=== PATIENT | female | born 1990 | race Caucasian/White ===

== ENCOUNTER 2017-03-09 15:03 | Emergency (ER) | payer MEDICAID ==
[2017-03-09] MEDS ORDERED: Sodium Chloride 0.9% 10 ML Syringe FLUSH PRN (15:25)
[2017-03-09] MEDS ORDERED: Sodium Chloride 0.9% 1,000 ML IV ONE (15:49)
[2017-03-09] MEDS ORDERED: diphenhydrAMINE 50 MG/ML SDV IVPUSH ONE (15:50)
[2017-03-09] MEDS ORDERED: methylPREDNISolone Sodium Succinate 125 MG/2 ML SDV IVPUSH ONE (15:51)
[2017-03-09] MEDS ORDERED: Ketorolac 30 MG/ML SDV IVPUSH ONE (15:52)
[2017-03-09] MEDS ORDERED: Diazepam 5 MG Tab PO ONE (15:52)
[2017-03-09 15:57] LABS: CHLORIDE,CL 105 mmol/L (98-107); SODIUM,NA 140 mmol/L (136-145)
--- NOTE | 2017-03-09 15:58 | EDM.PDOC ---
ED HPI GENERAL MEDICAL PROBLEM - General Chief Complaint: General Stated Complaint: Headache Time Seen by Provider: 03/09/17 15:20 Source of Information: Reports: Patient History Limitations: Reports: No Limitations - History of Present Illness INITIAL COMMENTS - FREE TEXT/NARRATIVE: Patient complaining of right sided migraine headache that started on Sunday, 2 days ago. Was seen in [place] ER. Received Toradol as well as medication for nausea. Headache went away but returned yesterday. Has nausea with the headache. No vision changes. Denies auras/prodromes. Long history of migraine headaches that have been extensively worked up. Improved when placed on medication for anxiety. Now rarely gets them. Does say that her father is currently in the hospital up in [place] and she has been stressed. No other recent health changes. ROS otherwise negative. Denies chance of . Says this feels like her usual migraine. No changes in presentation. BP elevated upon arrival. Patient said that her BP is normally elevated when she is having her migraines. - Related Data Allergies Allergy/AdvReac Type Severity Reaction Status Date / Time No Known Allergies Allergy Verified 08/28/15 09:09 Home Meds: Home Meds Acetaminophen [Tylenol] 650 mg PO Q4HR PRN 08/28/15 [History] FLUoxetine [PROzac] 20 mg PO QAM 08/28/15 [History] Past Medical History HEENT History: Reports: Impaired Vision Other HEENT History: Wears glasses or contacts Cardiovascular History: Reports: Arrhythmia, Hypertension Respiratory History: Reports: None Gastrointestinal History: Reports: None Genitourinary History: Reports: None [employer] History: Reports: Spontaneous Musculoskeletal History: Reports: None Neurological History: Reports: Headaches, Chronic, Migraines, Seizure, Vertigo Psychiatric History: Reports: Anxiety, Depression Endocrine/Metabolic History: Reports: None Hematologic History: Reports: None Immunologic History: Reports: None Oncologic (Cancer) History: Reports: None Dermatologic History: Reports: None - Infectious Disease History Infectious Disease History: Reports: Chicken Pox - Past Surgical History HEENT Surgical History: Reports: Laser Surgery - Past Imaging History Past Imaging History: Reports: CAT Scan, Ultrasound, Other (See Below) Social & Family History - Tobacco Use Smoking Status *Q: Current Every Day Smoker Years of Tobacco use: 8 Packs/Tins Daily: 0.5 Used Tobacco, but Quit: No Second Hand Smoke Exposure: No - Caffeine Use Caffeine Use: Reports: Coffee (1-2 times per month), Soda (One per day). Denies : Energy Drinks, Tea - Alcohol Use Days Per Week of Alcohol Use: 0 (No previous DWIs, problems with alcohol abuse, etc.) Number of Drinks Per Day: 2 (Usually wine coolers every 6 months) Total Drinks Per Week: 0 - Recreational Drug Use Recreational Drug Use: No Drug Use in Last 12 Months: No - Living Situation & Occupation Living situation: Reports: with Significant Other, with Family Occupation: Employed ED ROS GENERAL - Review of Systems Review Of Systems: See Below Constitutional: Reports: Decreased Appetite. Denies: Fever, Weakness, Diaphoresis HEENT: Reports: No Symptoms. Denies: Vision Change Respiratory: Reports: No Symptoms Cardiovascular: Reports: No Symptoms GI/Abdominal: Reports: Decreased Appetite, Nausea. Denies: Abdominal Pain, Constipation, Diarrhea, Melena, Vomiting : Reports: No Symptoms Musculoskeletal: Reports: No Symptoms Skin: Reports: No Symptoms Neurological: Reports: Headache. Denies: Confusion, Dizziness, Numbness, Paresthesia, Pre-Existing Deficit, Seizure, Syncope, Tingling, Tremors, Trouble Speaking, Difficulty Walking, Weakness, Change in Speech, Gait Disturbance Psychiatric: Reports: No Symptoms Hematologic/Lymphatic: Reports: No Symptoms ED EXAM, GENERAL - Physical Exam Exam: See Below Exam Limited By: No Limitations General Appearance: Alert, WD/WN, Mild Distress, Obese Eye Exam: Bilateral Eye: EOMI, PERRL Ears: Normal External Exam, Normal Canal, Hearing Grossly Normal, Normal TMs Nose: Normal Inspection Throat/Mouth: Normal Inspection, Normal Oropharynx, Normal Voice, No Airway Compromise Head: Atraumatic, Normocephalic Neck: Normal Inspection, Supple, Non-Tender, Full Range of Motion Respiratory/Chest: No Respiratory Distress, Lungs Clear, Normal Breath Sounds, No Accessory Muscle Use Cardiovascular: Normal Peripheral Pulses, Regular Rate, Rhythm, No Murmur Peripheral Pulses: 2+: Radial (L), Radial (R) GI/Abdominal: Normal Bowel Sounds, Soft, Non-Tender, No Distention (Female) Exam: Deferred Rectal (Female) Exam: Deferred Back Exam: Normal Inspection Extremities: Normal Inspection, Normal Range of Motion, Non-Tender, No Pedal Edema, Normal Capillary Refill Neurological: Alert, Oriented, CN II-XII Intact, Normal Cognition, Normal Gait, No Motor/Sensory Deficits Psychiatric: Other (fatigued appearance) Skin Exam: Warm, Dry, Intact, Normal Color Course - Vital Signs Last Recorded V/S: Last Vital Signs Temp 36.6 C 03/09/17 15:05 Pulse 68 03/09/17 15:25 Resp 16 03/09/17 15:05 BP 143/87 H 03/09/17 15:25 Pulse Ox 99 03/09/17 15:05 - Orders/Labs/Meds Orders: Active Orders 24 hr Category Date Time Status Saline Lock Insert [OM.PC] Routine Oth 03/09/17 15:24 Ordered Labs: Laboratory Tests 03/09/17 03/09/17 03/09/17 Range/Units 15:35 15:35 17:30 WBC 10.8 H (4.0-10.2) K/uL RBC 4.55 (3.77-5.09) M/uL Hgb 14.3 (11.7-15.5) g/dL Hct 42.7 (34.0-46.0) % MCV 93.8 (84.0-98.0) fL MCH 31.4 (28.2-33.3) pg MCHC 33.5 (31.7-36.0) g/dL RDW 13.7 (11.2-14.1) % Plt Count 200 (150-350) K/uL Neut % (Auto) 62.7 (45.0-80.0) % Lymph % (Auto) 26.9 (10.0-50.0) % Leake % (Auto) 5.7 (2.0-14.0) % Eos % (Auto) 4.4 (0.0-5.0) % Baso % (Auto) 0.3 (0.0-2.0) % Neut # (Auto) 6.79 (1.40-7.00) K/uL Lymph # (Auto) 2.91 (0.50-3.50) K/uL Leake # (Auto) 0.62 (0.00-1.00) K/uL Eos # (Auto) 0.48 (0.00-0.50) K/uL Baso # (Auto) 0.03 (0.00-0.20) K/uL Sodium 140 (136-145) mmol/L Potassium 4.0 (3.5-5.1) mmol/L Chloride 105 (98-107) mmol/L Carbon Dioxide 24.3 (21.0-32.0) mmol/L BUN 12 (7-18) mg/dL Creatinine 0.67 (0.51-1.17) mg/dL Est Cr Clr Drug Dosing 124.82 mL/min Estimated GFR (MDRD) > 60 mL/min Glucose 158 H (74-106) mg/dL Calcium 8.8 (8.5-10.1) mg/dL Magnesium 1.9 (1.8-2.4) mg/dL Total Bilirubin 0.2 (0.2-1.0) mg/dL AST 11 L (15-37) U/L ALT 21 (12-78) U/L Alkaline Phosphatase 87 (46-116) IU/L Total Protein 7.0 (6.4-8.2) g/dL Albumin 3.7 (3.4-5.0) g/dL Specimen Type Urine Color Urine Appearance Urine pH (5.0-9.0) Ur Specific [place] (1.005-1.030) Urine Protein (NEGATIVE) mg/dL Urine Glucose (UA) (NEGATIVE) mg/dL Urine Ketones (NEGATIVE) mg/dL Urine Occult Blood (NEGATIVE) Urine Nitrite (NEGATIVE) Urine Bilirubin (NEGATIVE) Urine Urobilinogen (0.2-1.0) E.U./dL Ur Leukocyte Esterase (NEGATIVE) Urine RBC /HPF Urine WBC /HPF Ur Epithelial Cells /LPF Urine Bacteria (NONE TO FEW) /HPF Urine Mucus (NEGATIVE) /LPF Urine HCG, Qual Negative 03/09/17 Range/Units 17:30 WBC (4.0-10.2) K/uL RBC (3.77-5.09) M/uL Hgb (11.7-15.5) g/dL Hct (34.0-46.0) % MCV (84.0-98.0) fL MCH (28.2-33.3) pg MCHC (31.7-36.0) g/dL RDW (11.2-14.1) % Plt Count (150-350) K/uL Neut % (Auto) (45.0-80.0) % Lymph % (Auto) (10.0-50.0) % Leake % (Auto) (2.0-14.0) % Eos % (Auto) (0.0-5.0) % Baso % (Auto) (0.0-2.0) % Neut # (Auto) (1.40-7.00) K/uL Lymph # (Auto) (0.50-3.50) K/uL Leake # (Auto) (0.00-1.00) K/uL Eos # (Auto) (0.00-0.50) K/uL Baso # (Auto) (0.00-0.20) K/uL Sodium (136-145) mmol/L Potassium (3.5-5.1) mmol/L Chloride (98-107) mmol/L Carbon Dioxide (21.0-32.0) mmol/L BUN (7-18) mg/dL Creatinine (0.51-1.17) mg/dL Est Cr Clr Drug Dosing mL/min Estimated GFR (MDRD) mL/min Glucose (74-106) mg/dL Calcium (8.5-10.1) mg/dL Magnesium (1.8-2.4) mg/dL Total Bilirubin (0.2-1.0) mg/dL AST (15-37) U/L ALT (12-78) U/L Alkaline Phosphatase (46-116) IU/L Total Protein (6.4-8.2) g/dL Albumin (3.4-5.0) g/dL Specimen Type [place] Urine Color Yellow Urine Appearance Clear Urine pH 6.5 (5.0-9.0) Ur Specific [place] 1.015 (1.005-1.030) Urine Protein Negative (NEGATIVE) mg/dL Urine Glucose (UA) Negative (NEGATIVE) mg/dL Urine Ketones Negative (NEGATIVE) mg/dL Urine Occult Blood Negative (NEGATIVE) Urine Nitrite Negative (NEGATIVE) Urine Bilirubin Negative (NEGATIVE) Urine Urobilinogen 0.2 (0.2-1.0) E.U./dL Ur Leukocyte Esterase Negative (NEGATIVE) Urine RBC 0-5 /HPF Urine WBC 0-5 /HPF Ur Epithelial Cells Few /LPF Urine Bacteria Few (NONE TO FEW) /HPF Urine Mucus Few H (NEGATIVE) /LPF Urine HCG, Qual Meds: Medications Discontinued Medications Generic Name Dose Route Start Last Admin Trade Name Daneq PRN Reason Stop Dose Admin Diazepam 5 mg 03/09/17 15:52 03/09/17 16:09 Valium. PO 03/09/17 15:53 5 mg ONETIME ONE Administration Diphenhydramine HCl 50 mg 03/09/17 15:50 03/09/17 16:05 Benadryl IVPUSH 03/09/17 15:51 50 mg ONETIME ONE Administration Sodium Chloride 1,000 mls @ 999 mls/hr 03/09/17 15:49 03/09/17 15:56 Normal Saline IV 03/09/17 16:49 999 mls/hr .BOLUS ONE Administration Ketorolac Tromethamine 30 mg 03/09/17 15:52 03/09/17 16:01 Toradol IVPUSH 03/09/17 15:53 30 mg ONETIME ONE Administration Methylprednisolone Sodium Succinate 125 mg 03/09/17 15:51 03/09/17 16:07 Solu-Medrol IVPUSH 03/09/17 15:52 125 mg ONETIME ONE Administration Metoprolol Tartrate 25 mg 03/09/17 16:03 Lopressor PO 03/09/17 16:04 ONETIME ONE Sodium Chloride 10 ml 03/09/17 15:25 03/09/17 16:04 Saline Flush FLUSH 10 ml ASDIRECTED PRN Administration Keep Vein Open Sumatriptan Succinate 6 mg 03/09/17 16:56 03/09/17 17:06 Imitrex SUBCUT 03/09/17 16:57 6 mg ONETIME ONE Administration - Re-Assessments/Exams Free Text/Narrative Re-Assessment/Exam: 03/09/17 15:58 Baseline labs requested. IV fluids ordered. Toradol/Benadryl/Zofran ordered IV. PO Valium given. Solumedrol given. Free Text/Narrative Re-Assessment/Exam: 03/09/17 17:34 Significant improvement of headache. Patient would like to go home. Precautions reviewed. Suggested considering elimination diet to see if it helps headaches. Departure - Departure Time of Disposition: 17:33 Disposition: Home, Self-Care 01 Condition: Good Clinical Impression: Migraine headache Qualifiers: Migraine type: unspecified Status migrainosus presence: without status migrainosus Intractability: not intractable Qualified Code(s): G43.909 - Migraine, unspecified, not intractable, without status migrainosus - Discharge Information Instructions: Sumatriptan injection, Diphenhydramine injection, Ketorolac injection, Methylprednisolone Solution for Injection, Diazepam tablets, Migraine Headache Referrals: Cat Valdivia PA-C [Primary Care Provider] - Forms: ED Department Discharge Additional Instructions: Home, rest, keep hydrated. Follow up as needed. Highly recommend elimination diet as discussed to see if it helps your headaches. - My Orders Last 24 Hours: My Active Orders 03/09/17 15:24 Saline Lock Insert [OM.PC] Routine - Assessment/Plan Last 24 Hours: My Active Orders 03/09/17 15:24 Saline Lock Insert [OM.PC] Routine
[2017-03-09] MEDS ORDERED: Metoprolol Tartrate 25 MG Tab PO ONE (16:03)
[2017-03-09 16:49] VITALS: BP 143/87
[2017-03-09] MEDS ORDERED: SUMAtriptan 6 MG/0.5 ML SDV SUBCUT ONE (16:56)
== END 2017-03-09 17:45 | disposition home or self-care (01) ==
LOC: LL.ED 15:03
DX: G43.009 Migraine without aura, not intractable, without status migrainosus (principal); I10 Essential (primary) hypertension; F17.210 Nicotine dependence, cigarettes, uncomplicated
CPT/HCPCS: 36415; 80053; 81001; 81025; 83735; 85025; 96361; 96372; 96374; 96375; 99283; A9270-GY; J1200; J1885; J2930; J3030; J7030; J7050

== ENCOUNTER 2018-04-08 08:47 | Emergency (ER) | payer MEDICAID ==
[2018-04-08 09:26] VITALS: BP 143/93
--- NOTE | 2018-04-08 09:33 | EDM.PDOC ---
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 Denies injury but is 18 weeks and has noted intermittent right sided abdominal cramping since the fall. 8 Para 3. No spotting/bleeding. No other complaints. Came in to get the checked. Right Lower Abdomen Pain Score (Numeric/FACES): 4 - Related Data Allergies Allergy/AdvReac Type Severity Reaction Status Date / Time venlafaxine [From Effexor] Allergy Itching Verified 04/08/18 08:49 Home Meds: Home Meds Acetaminophen [Tylenol] 650 mg PO Q4HR PRN 08/28/15 [History] FLUoxetine [PROzac] 40 mg PO QAM 08/28/15 [History] Vit No.129/Iron/FA [ One Daily Tablet] 1 tab PO DAILY 04/08/18 [History] Past Medical History HEENT History: Reports: Impaired Vision Other HEENT History: Wears glasses or soft contacts Cardiovascular History: Reports: Arrhythmia, High Cholesterol, Hypertension, Other (See Below) Other Cardiovascular History: History of sinus arrhythmia, borderline tachycardia with questionable atrial tachycardia versus sinus tachycardia on based on review of emergency room records. Intermittent hypertension not currently being treated. Dyslipidemia Respiratory History: Reports: None Gastrointestinal History: Reports: None Genitourinary History: Reports: None TELEPHONE ADVICE NURSE History: Reports: , Spontaneous Other TELEPHONE ADVICE NURSE History: Note history of first trimester SABs 4 with last SAB requiring D&C in May 2016. Otherwise full term normal spontaneous vaginal deliveries without complications. Patient currently on progesterone secondary to her recurrent SABs. Musculoskeletal History: Reports: None Neurological History: Reports: Headaches, Chronic, Migraines, Seizure, Vertigo, Other (See Below) Other Neuro History: History of mixed Migraine-tension headaches since 2012 with previous negative workup as below. 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 Chronic intermittent vertigo since October 2014. Psychiatric History: Reports: Aggressive/Hostile Behaviors, Anxiety, Depression Endocrine/Metabolic History: Reports: Obesity/BMI 30+ Hematologic History: Reports: None Immunologic History: Reports: None Oncologic (Cancer) History: Reports: None Dermatologic History: Reports: None - Infectious Disease History Infectious Disease History: Reports: Chicken Pox - Past Surgical History Head Surgeries/Procedures: Reports: None HEENT Surgical History: Reports: None Cardiovascular Surgical History: Reports: None Respiratory Surgical History: Reports: None GI Surgical History: Reports: Appendectomy, Other (See Below) Other GI Surgeries/Procedures: Open appendectomy at age 8 Female Surgical History: Reports: D&C, Other (See Below) Other Female Surgeries/Procedures: D&C in May 2016 secondary to SAB as above. Endocrine Surgical History: Reports: None Neurological Surgical History: Reports: None Musculoskeletal Surgical History: Reports: None Oncologic Surgical History: Reports: None Dermatological Surgical History: Reports: None - Past Imaging History Past Imaging History: Reports: CAT Scan (CT scan of the head in about 2012.), EEG (Sleep deprived EEG in about 2012.), MRI (MRI of the brain on 10/08/17.), Ultrasound (Right breast ultrasound on 01/04/17.), Venous Doppler (Venous Doppler study of the right leg on 10/01/17.), Other (See Below) Social & Family History - Family History HEENT: Reports: None Cardiac: Reports: Aneurysm, CAD, High Cholesterol, Hypertension, CO, Stent, Other (See Below) Other Cardiac Family History: Father with history of CO in his early 20s with no procedures required. Maternal grandmother with CO in her late her 30s with PTCA/stents required. Father with cerebral aneurysms as below. Parents with hypertension and hyperlipidemia. Respiratory: Reports: None GI: Reports: Hepatitis, Other (See Below) Other GI Family History: Father with unknown type of hepatitis. : Reports: None OBGYN: Reports: None Musculoskeletal: Reports: Arthritis, Osteoarthritis, Other (See Below) Other Musculoskeletal Family History: Father and brother with Raynaurd's syndrome. Neurological: Reports: Alzheimers Disease, Cerebral Aneurysms, CVA, Dementia, Other (See Below) Other Neurological Family History: Maternal grandmother with dementia. Paternal grandfather with hemorrhagic CVA in his 40s secondary to cerebral aneurysm. Psychiatric: Reports: Anxiety, Depression, Other (See Below) Other Psychiatric Family History: Anxiety depression disorder in parents, sister , and brother. Endocrine/Metabolic: Reports: Diabetes, type II, IDDM, Other (See Below) Other Endocrine/Metabolic Family History: Paternal grandfather and father with IDDM. Hematologic: Reports: None Immunologic: Reports: None Dermatologic: Reports: None Oncologic: Reports: Prostate, Uterine, Other (See Below) - Tobacco Use Smoking Status *Q: Current Some Day Smoker Years of Tobacco use: 8 Packs/Tins Daily: 0.2 Tobacco Use Comment: Down to 4 cigarettes a day currently Mar 2018 Smoking Cessation Information Provided To Patient: Patient Refused - Caffeine Use Caffeine Use: Reports: None. 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 ED EXAM, GI/ABD - Physical Exam Exam: See Below Exam Limited By: No Limitations General Appearance: Alert, WD/WN, No Apparent Distress, Obese Eyes: Bilateral: Normal Appearance, EOMI Nose: No: Nasal Deformity, Nasal Swelling Throat/Mouth: Normal Lips, Normal Voice, No Airway Compromise Head: Atraumatic, Normocephalic Neck: Supple, Non-Tender, Full Range of Motion Respiratory/Chest: No Respiratory Distress, Lungs Clear, Normal Breath Sounds, No Accessory Muscle Use, Chest Non-Tender Cardiovascular: Regular Rate, Rhythm, No Murmur GI/Abdominal Exam: Normal Bowel Sounds, Soft, Non-Tender, Other (gravid/18 weeks ). No: Distended, Guarding, Rigid, Rebound, Tender (Female) Exam: Deferred Rectal (Female) Exam: Deferred Back Exam: No: Muscle Spasm Extremities: Normal Range of Motion, Non-Tender, Normal Capillary Refill Neurological: Alert, Oriented, Normal Cognition, Normal Gait, No Motor/Sensory Deficits Psychiatric: Normal Affect, Normal Mood Skin Exam: Warm, Dry, Intact, Normal Color Course - Vital Signs Last Recorded V/S: Last Vital Signs Temp 36.3 C 04/08/18 09:24 Pulse 93 04/08/18 09:24 Resp 15 04/08/18 09:24 BP 143/93 H 04/08/18 09:24 Pulse Ox 100 04/08/18 09:24 - Orders/Labs/Meds Orders: Active Orders 24 hr Category Date Time Status OB 2 Or 3 Tri Sgl 1st Gest [US] Stat Exams 04/08/18 08:59 Taken - Re-Assessments/Exams Free Text/Narrative Re-Assessment/Exam: 04/08/18 09:29 Unremarkable exam. No focal findings/tenderness. BP mildly elevated. Patient has history of borderline HTN and has chosen not to treat it up until this point. Doppar noted normal heart tones. US of abdomen requested to look for any abnormality, such as sign of abruption. If negative, patient will be discharged home. Precautions already have been reviewed with patient. She is to observe for any new symptoms, worsening cramps, vaginal bleeding, and is to follow up for re- evaluation as needed if changes are noted. 04/08/18 13:27 Unremarkable abdominal US exam per tech. Patient discharged home with the above instructions. Work excuse provided for today. Departure - Departure Time of Disposition: 10:20 Disposition: Home, Self-Care 01 Condition: Good Clinical Impression: Fall Qualifiers: Encounter type: initial encounter Qualified Code(s): W19.XXXA - Unspecified fall, initial encounter Qualifiers: Weeks of gestation: 18 weeks Qualified Code(s): Z3A.18 - 18 weeks gestation of - Discharge Information *PRESCRIPTION DRUG MONITORING PROGRAM REVIEWED*: Not Applicable *COPY OF PRESCRIPTION DRUG MONITORING REPORT IN PATIENT ERIBERTO: Not Applicable Referrals: Cat Valdivia PA-C [Primary Care Provider] - Forms: ED Department Discharge, ED Return to Work/School Form Additional Instructions: Home, rest today. Watch for changes. Followup as needed if any new concerns develop, such as vaginal bleeding/increased cramping. - My Orders Last 24 Hours: My Active Orders 04/08/18 08:59 OB 2 Or 3 Tri Sgl 1st Gest [US] Stat - Assessment/Plan Last 24 Hours: My Active Orders 04/08/18 08:59 OB 2 Or 3 Tri Sgl 1st Gest [US] Stat
== END 2018-04-08 10:05 | disposition home or self-care (01) ==
LOC: LL.ED 08:47
DX: Z04.3 Encounter for examination and observation following other accident (principal); O99.282 Endocrine, nutritional and metabolic diseases complicating pregnancy, second trimester; E78.00 Pure hypercholesterolemia, unspecified; O99.332 Smoking (tobacco) complicating pregnancy, second trimester; F17.210 Nicotine dependence, cigarettes, uncomplicated; Z3A.18 18 weeks gestation of pregnancy
CPT/HCPCS: 76805; 99284

== ENCOUNTER 2018-10-31 13:20 | Emergency (ER) | payer MEDICAID ==
[2018-10-31] MEDS ORDERED: Sodium Chloride 0.9% 10 ML Syringe FLUSH PRN (13:28)
[2018-10-31] MEDS ORDERED: Ticagrelor 90 MG Tab PO ONE (13:28)
[2018-10-31] MEDS ORDERED: Famotidine 20 MG/2 ML SDV IVPUSH ONE (13:28)
[2018-10-31] MEDS ORDERED: Aspirin 81 MG Tab.Chew CHEW ONE (13:28)
--- NOTE | 2018-10-31 13:28 | EDM.PDOC ---
ED HPI GENERAL MEDICAL PROBLEM - General Chief Complaint: Chest Pain Stated Complaint: chest pain Time Seen by Provider: 10/31/18 13:20 Source of Information: Reports: Patient, Old Records ([facility] chart/EMR), Other ([facility] EMR) History Limitations: Reports: No Limitations - History of Present Illness INITIAL COMMENTS - FREE TEXT/NARRATIVE: The patient drove herself to the emergency room via private automobile for evaluation of 5/10 left-sided chest pressure with symptoms starting at work while she was simply standing with no medications taken for her symptoms to this point. Note that she had just eaten some chicken nuggets at noon, however no known previous history of food intolerance, including fatty foods, etc. The patient has had a recent extensive negative cardiac workup in December 2017 as below. The patient denies any heart flutter, dizziness, orthostasis, orthopnea, diaphoresis, paresthesias, recent decreased exercise tolerance, or any other anginal-type symptoms. No recent history of abdominal pain, heartburn, nausea, diarrhea, melena, gross hematochezia, etc.. She denies gross hematuria, colic, or other UTI symptoms. The patient also denies any recent fever, cough, wheezing , dyspnea, etc.. Onset: Today, Sudden Onset Date: 10/31/18 Onset Time: 12:30 Duration: Constant Location: Reports: Chest. Denies: Head, Face, Neck, Abdomen, Back, Upper Extremity, Left, Upper Extremity, Right, Radiates to Quality: Reports: Pressure, Same as Previous Episode Severity: Moderate Improves with: Reports: None Worsens with: Reports: None Context: Reports: Other (As above). Denies: Sick Contact, Trauma Associated Symptoms: Reports: Chest Pain. 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 10/31/18 [Rx] Past Medical History HEENT History: Reports: Impaired Vision. Denies: Allergic Rhinitis, Cataract, Glaucoma, Hard of Hearing, Macular Degeneration, Otitis Media, Retinal Detachment Other HEENT History: Wears glasses or soft contacts Cardiovascular History: Reports: Arrhythmia, High Cholesterol, Hypertension, Other (See Below). Denies: Afib, Aneurysm, Blood Clots/VTE/DVT, CAD, Cardiomyopathy, Heart Failure, Heart Murmur, MA, PVD, Syncope Other Cardiovascular History: PVCs by Holter monitor. History of sinus arrhythmia, borderline tachycardia with questionable atrial tachycardia versus sinus tachycardia on 02/03/15 based on review of emergency room records. Intermittent hypertension not currently being treated. Dyslipidemia. Respiratory History: Reports: None. Denies: Asthma, Bronchitis, Recurrent, COPD , Intubation, Previous, PE, Pneumothorax, Sleep Apnea, TB Gastrointestinal History: Reports: None. Denies: Bowel Obstruction, Celiac Disease, Cholelithiasis, Chronic Constipation, Chronic Diarrhea, Colon Polyp, Fecal Incontinence, Gastritis, GERD, GI Bleed, Hepatitis, Inflammatory Bowel Disease, Irritable Bowel Syndrome, Jaundice, Pancreatitis Genitourinary History: Reports: None. 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 Last delivery on 08/27/18 at about 37 weeks gestation by induction secondary to preeclampsia. hemorrhage in 2013 as below. 2000 Note history of first trimester SABs 4 with last SAB requiring D&C in May 2016. Otherwise full term normal spontaneous vaginal deliveries without complications. Musculoskeletal History: Reports: None. Denies: Amputation, Arthritis, Back Pain, Chronic, Fracture, Gout, Neck Pain, Chronic, Osteoarthritis, RA, SLE Neurological History: Reports: Headaches, Chronic, Migraines, Seizure, Vertigo, Other (See Below). Denies: CVA, Head Trauma, Neuropathy, Peripheral, Parkinson' s, TIA Other Neuro History: History of mixed Migraine-tension headaches since 2012 with previous negative workup as below. 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 Chronic intermittent vertigo since October 2014. Psychiatric History: Reports: Aggressive/Hostile Behaviors, Anxiety, Depression. Denies: Abuse, Victim of, ADD, ADHD, Addiction, Psych Hospitalization(s), PTSD, Suicide Attempt, Suicidal Ideation Endocrine/Metabolic History: Reports: Obesity/BMI 30+. Denies: Diabetes, Gestational, Diabetes, Type I, Diabetes, Type II, Diabetes Mellitus, Type 3c, Hypothyroidism, IDDM Hematologic History: Reports: Anemia, Other (See Below). Denies: Blood Transfusion(s), Iron Deficiency Other Hematologic History: Post hemorrhage with secondary anemia without transfusion on 02/07/2014. Immunologic History: Reports: None. Denies: AIDS, HIV, SLE Oncologic (Cancer) History: Reports: None. Denies: Breast, Cervix, Hodgkin's Lymphoma, Lymphoma, Malignant Melanoma, Non-Hodgkin's Lymphoma, Ovarian, Squamous Cell Carcinoma, Uterine Dermatologic History: Reports: None. Denies: Eczema, Psoriasis - Infectious Disease History Infectious Disease History: Reports: Chicken Pox. Denies: C-Difficile, Measles , Meningitis, Mononucleosis, MRSA, Mumps, Pertussis (Whooping Cough), Rubella, Scarlet Fever, Shingles, TB, VRE - Past Surgical History Head Surgeries/Procedures: Reports: None HEENT Surgical History: Reports: None. Denies: Adenoidectomy, Eye Surgery, Laser Surgery, LASIK, Myringotomy w Tube(s), Naso-Sinus Surgery, Oral Surgery, Tonsillectomy Cardiovascular Surgical History: Reports: None. Denies: Varicose Respiratory Surgical History: Reports: None. Denies: Thoracentesis GI Surgical History: Reports: Appendectomy, Other (See Below). Denies: Cholecystectomy, Colonoscopy, EGD, Hernia, Abdominal, Hernia, Inguinal, Hernia Repair/Other Other GI Surgeries/Procedures: Open appendectomy at age 8 Female Surgical History: Reports: D&C, Dilitation & Evacuation, Other (See Below). Denies: Breast Biopsy, Section, Hysterectomy, Salpingo- Oophorectomy, Tubal Ligation Other Female Surgeries/Procedures: Laparoscopic Bilateral salpingoectomy on . D&C on 06/09/16 secondary to SAB as above. Endocrine Surgical History: Reports: None. Denies: Thyroid Biopsy Neurological Surgical History: Reports: None. Denies: C-Spine, Discectomy, Laminectomy, Lumbar Spine, Sacral Spine, Spinal Fusion, Thoracic Spine, Vertebroplasty Musculoskeletal Surgical History: Reports: None. Denies: Arthroscopic Procedure , Carpal Tunnel, Ganglion Cyst, Joint Replacement, ORIF, Shoulder Surgery Oncologic Surgical History: Reports: None Dermatological Surgical History: Reports: None - Past Imaging History Past Imaging History: Reports: Angiography (Negative heart catheterization on .), Cardiac Echo (Normal echocardiogram on 01/06/18 with ejection fraction of 65%.), CAT Scan (CT scan of the head in about 2012.), EEG (Sleep deprived EEG in about 2012.), Holter Monitor (02/16/15), MRI (MRI of the brain on 10/08/17 and 01/20/15.), Ultrasound (Multiple OB ultrasounds, including last OB ultrasound with concomitant umbilical artery Doppler evaluation on 04/25/18. Right breast ultrasound on 01/04/17.), Venous Doppler (Venous Doppler study of the right leg on 10/01/17.), Other (See Below) Social & Family History - Family History HEENT: Reports: None. Denies: Glaucoma, Macular Degeneration, Retinal Detachment Cardiac: Reports: Aneurysm, CAD, High Cholesterol, Hypertension, MA, Stent, Other (See Below). Denies: Afib, Arrhythmia, Blood Clots/VTE/DVT, PVD/COD, Syncope Other Cardiac Family History: Father with history of MA in his early 20s with no procedures required. Maternal grandmother with MA in her late her 30s with PTCA/stents required. Father with cerebral aneurysms as below. Parents with hypertension and hyperlipidemia. Respiratory: Reports: None. Denies: Asthma, COPD, PE, Pneumothorax, Sleep Apnea GI: Reports: Hepatitis, Other (See Below). Denies: Celiac Disease, Cholelithiasis, Colon Polyps, Inflammatory Bowel Disease, Irritable Bowel Syndrome Other GI Family History: Father with unknown type of hepatitis. : Reports: None. Denies: Renal Calculus, Renal Disease/Insufficiency OBGYN: Reports: None. Denies: Endometriosis, Recurrent Spontaneous Musculoskeletal: Reports: Arthritis, Osteoarthritis, Other (See Below). Denies : Gout, RA, SLE Other Musculoskeletal Family History: Father and brother with Raynaurd's syndrome. Neurological: Reports: Alzheimers Disease, Cerebral Aneurysms, CVA, Dementia, Other (See Below). Denies: Migraines, MS, Parkinson's, Seizure, TIA, Vertigo Other Neurological Family History: Maternal grandmother with dementia. Paternal grandfather with hemorrhagic CVA in his 40s secondary to cerebral aneurysm. Psychiatric: Reports: Anxiety, Depression, Other (See Below). Denies: Abuse, Victim of, ADD, ADHD, Psych Hospitalization(s), PTSD, Suicide Attempt Other Psychiatric Family History: Anxiety depression disorder in parents, sister , and brother. Endocrine/Metabolic: Reports: Diabetes, type II, IDDM, Other (See Below). Denies: Diabetes, Gestational, Diabetes, Type I, Diabetes Mellitus, Type 3c, Hypothyroidism Other Endocrine/Metabolic Family History: Paternal grandfather and father with IDDM. Hematologic: Reports: None Immunologic: Reports: None. Denies: AIDS, HIV, SLE Dermatologic: Reports: None Oncologic: Reports: Prostate, Uterine, Other (See Below). Denies: Brain, Breast , Colon, Hodgkin's Lymphoma, Leukemia, Lymphoma, Non-Hodgkin's Lymphoma, Ovarian Other Oncologic Family History: Father with prostate cancer. Maternal grandmother and paternal aunt both with uterine cancer in their 40s. - Tobacco Use Smoking Status *Q: Current Every Day Smoker Tobacco Use Within Last Twelve Months: Cigarettes Years of Tobacco use: 11 Packs/Tins Daily: 0.5 Packs/Tins Daily Comment: Started smoking at age 17 with maximum use is 2.5 packs per day. Used Tobacco, but Quit: No Smoking Cessation Information Provided To Patient: Yes Second Hand Smoke Exposure: No Second Hand Smoke Education Provided: No - Caffeine Use Caffeine Use: Reports: Coffee (One cup per day). Denies: Energy Drinks, Soda, Tea - Alcohol Use Alcohol Use History: Yes Days Per Week of Alcohol Use: 0 Number of Drinks Per Day: 1 Number of Drinks Per Day Comment: Usually wine coolers about 12 times per year. No previous DWIs, problems with alcohol abuse, etc. 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 ED EXAM, GENERAL - Physical Exam Exam: See Below Exam Limited By: No Limitations General Appearance: Alert, WD/WN, No Apparent Distress, Anxious (Mild) Eye Exam: Bilateral Eye: EOMI, Normal Inspection (Patient wearing soft contacts. No nystagmus), PERRL Ears: Normal External Exam, Normal Canal, Hearing Grossly Normal, Normal TMs Nose: Normal Inspection, Normal Mucosa, No Blood Throat/Mouth: Normal Inspection, Normal Lips, Normal Teeth, Normal Gums, Normal Oropharynx, Normal Voice, No Airway Compromise. No: Dysphagia, Perioral Cyanosis Head: Atraumatic, Normocephalic. No: Facial Swelling, Facial Tenderness, Sinus Tenderness Neck: Normal Inspection, Supple, Non-Tender, Full Range of Motion. No: Lymphadenopathy (L), Lymphadenopathy (R), Thyromegaly Respiratory/Chest: No Respiratory Distress, Lungs Clear, Normal Breath Sounds, No Accessory Muscle Use, Chest Non-Tender. No: Pleural Rub, Retractions Cardiovascular: Normal Peripheral Pulses, Regular Rate, Rhythm, No Edema, No Gallop, No JVD, No Murmur, No Rub. No: Gallop/S3, Gallop/S4, Friction Rub Peripheral Pulses: 2+: Radial (L), Radial (R), Dorsalis Pedis (L), Dorsalis Pedis (R) GI/Abdominal: Normal Bowel Sounds, Soft, Non-Tender, No Organomegaly, No Distention, No Abnormal Bruit, No Mass, Pelvis Stable, Other (Obese). No: Guarding (Female) Exam: Deferred Rectal (Female) Exam: Deferred Back Exam: Normal Inspection, Full Range of Motion. No: CVA Tenderness (L), CVA Tenderness (R) Extremities: Normal Inspection, Normal Range of Motion, Non-Tender, No Pedal Edema, Normal Capillary Refill. No: Dhruv's Sign Neurological: Alert, Oriented, CN II-XII Intact, Normal Cognition, Normal Gait, Normal Reflexes (Negative Babinski's), No Motor/Sensory Deficits Psychiatric: Anxious (Mild). No: Depressed Mood Skin Exam: Warm, Dry, Intact, Normal Color, No Rash, Stud(s) (Multiple), Tattoo( s) (Multiple). No: Diaphoretic, Wound/Incision Lymphatic: No Adenopathy EKG INTERPRETATION EKG Date: 10/31/18 Time: 13:23 Rhythm: NSR Rate (Beats/Min): 96 [place]: Normal (Neutral) P-Wave: Enlarged (Mild diffuse biphasic P waves with pulmonary hypertension by EKG) QRS: Normal (0.09 seconds) ST-T: Normal QT: Normal VA/PQ Interval: 0.15 seconds Comparison: No Change (Since 01/05/18) EKG Interpretation Comments: 1. No acute ischemic changes 2. Left atrial enlargement 3. Pulmonary hypertension by EKG Course - Vital Signs Last Recorded V/S: Last Vital Signs Temp 36.6 C 10/31/18 13:23 Pulse 108 H 10/31/18 13:23 Resp 20 10/31/18 13:23 BP 138/92 H 10/31/18 13:23 Pulse Ox 100 10/31/18 13:23 - Orders/Labs/Meds Orders: Active Orders 24 hr Category Date Time Status Cardiac Monitoring [RC] . DIRECTED Care 10/31/18 13:28 Active EKG Documentation Completion [RC] ASDIRECTED Care 10/31/18 13:28 Active Oxygen Therapy, ED [RC] PRN Care 10/31/18 13:28 Active Peripheral IV Care [RC] . DIRECTED Care 10/31/18 13:28 Active Pulse Oximetry [RC] CONTINUOUS Care 10/31/18 13:28 Active Up With Assistance [RC] PFP Care 10/31/18 13:28 Active Vital Signs [RC] PFP Care 10/31/18 13:28 Active Nothing per Oral Now Diet [DIET] Diet 10/31/18 Breakfast Active Chest 1V Frontal [CR] Stat Exams 10/31/18 13:28 Ordered Sodium Chloride 0.9% [Saline Flush] Med 10/31/18 13:28 Ordered 10 ml FLUSH ASDIRECTED PRN Obtain Past Medical Record [OM.PC] Urgent Oth 10/31/18 13:28 Active Peripheral IV Insertion Adult [OM.PC] Stat Oth 10/31/18 13:28 Ordered Resuscitation Status Stat Resus Stat 10/31/18 13:28 Ordered Medication Orders Sodium Chloride (Saline Flush) 10 ml FLUSH ASDIRECTED PRN PRN Reason: Keep Vein Open Last Admin: 10/31/18 13:46 Dose: 10 ml Labs: Laboratory Tests 10/31/18 10/31/18 10/31/18 Range/Units 13:34 13:34 13:34 WBC 13.0 H (4.0-10.2) K/uL RBC 4.26 (3.77-5.09) M/uL Hgb 11.5 L D (11.7-15.5) g/dL Hct 37.2 (34.0-46.0) % MCV 87.3 D (84.0-98.0) fL MCH 27.0 L (28.2-33.3) pg MCHC 30.9 L (31.7-36.0) g/dL RDW 15.2 H (11.2-14.1) % Plt Count 266 (150-350) K/uL Neut % (Auto) 68.9 (45.0-80.0) % Lymph % (Auto) 21.8 (10.0-50.0) % Sherman % (Auto) 4.9 (2.0-14.0) % Eos % (Auto) 4.0 (0.0-5.0) % Baso % (Auto) 0.4 (0.0-2.0) % Neut # (Auto) 8.99 H (1.40-7.00) K/uL Lymph # (Auto) 2.84 (0.50-3.50) K/uL Sherman # (Auto) 0.64 (0.00-1.00) K/uL Eos # (Auto) 0.52 H (0.00-0.50) K/uL Baso # (Auto) 0.05 (0.00-0.20) K/uL PT 9.8 (9.5-12.0) SEC INR 0.9 APTT 27.3 (21.0-31.3) SEC D-Dimer, Quantitative 111 (0-400) ng/mL Sodium (136-145) mmol/L Potassium (3.5-5.1) mmol/L Chloride (98-107) mmol/L Carbon Dioxide (21.0-32.0) mmol/L BUN (7-18) mg/dL Creatinine (0.51-1.17) mg/dL Est Cr Clr Drug Dosing mL/min Estimated GFR (MDRD) mL/min Glucose (74-106) mg/dL Lactic Acid (0.4-2.0) mmol/L Uric Acid (2.6-7.2) mg/dL Calcium (8.5-10.1) mg/dL Magnesium (1.8-2.4) mg/dL Total Bilirubin (0.2-1.0) mg/dL AST (15-37) U/L ALT (12-78) U/L Alkaline Phosphatase (46-116) IU/L Creatine Kinase (26-308) U/L Creatine Kinase Index (0.0-2.5) % CK-MB (CK-2) (0.00-3.60) ng/mL Troponin I (0.000-0.056) ng/mL NT-Pro-B Natriuret Pep (0-125) pg/mL Total Protein (6.4-8.2) g/dL Albumin (3.4-5.0) g/dL Amylase (25-115) U/L Lipase (73-393) U/L TSH, Ultra Sensitive (0.358-3.740) mIU/mL HCG, Qual (NEGATIVE) 10/31/18 10/31/18 10/31/18 Range/Units 13:34 13:34 13:34 WBC (4.0-10.2) K/uL RBC (3.77-5.09) M/uL Hgb (11.7-15.5) g/dL Hct (34.0-46.0) % MCV (84.0-98.0) fL MCH (28.2-33.3) pg MCHC (31.7-36.0) g/dL RDW (11.2-14.1) % Plt Count (150-350) K/uL Neut % (Auto) (45.0-80.0) % Lymph % (Auto) (10.0-50.0) % Sherman % (Auto) (2.0-14.0) % Eos % (Auto) (0.0-5.0) % Baso % (Auto) (0.0-2.0) % Neut # (Auto) (1.40-7.00) K/uL Lymph # (Auto) (0.50-3.50) K/uL Sherman # (Auto) (0.00-1.00) K/uL Eos # (Auto) (0.00-0.50) K/uL Baso # (Auto) (0.00-0.20) K/uL PT (9.5-12.0) SEC INR APTT (21.0-31.3) SEC D-Dimer, Quantitative (0-400) ng/mL Sodium 144 (136-145) mmol/L Potassium 3.6 (3.5-5.1) mmol/L Chloride 107 (98-107) mmol/L Carbon Dioxide 24.8 (21.0-32.0) mmol/L BUN 10 (7-18) mg/dL Creatinine 0.76 (0.51-1.17) mg/dL Est Cr Clr Drug Dosing 108.13 mL/min Estimated GFR (MDRD) > 60 mL/min Glucose 115 H (74-106) mg/dL Lactic Acid 1.4 (0.4-2.0) mmol/L Uric Acid 5.8 (2.6-7.2) mg/dL Calcium 9.1 (8.5-10.1) mg/dL Magnesium 1.8 (1.8-2.4) mg/dL Total Bilirubin 0.4 (0.2-1.0) mg/dL AST 17 (15-37) U/L ALT 37 (12-78) U/L Alkaline Phosphatase 104 (46-116) IU/L Creatine Kinase 55 (26-308) U/L Creatine Kinase Index 1.1 (0.0-2.5) % CK-MB (CK-2) 0.60 (0.00-3.60) ng/mL Troponin I 0.000 (0.000-0.056) ng/mL NT-Pro-B Natriuret Pep 119 (0-125) pg/mL Total Protein 7.3 (6.4-8.2) g/dL Albumin 3.6 (3.4-5.0) g/dL Amylase (25-115) U/L Lipase (73-393) U/L TSH, Ultra Sensitive 1.886 (0.358-3.740) mIU/mL HCG, Qual Negative (NEGATIVE) 10/31/18 Range/Units 13:34 WBC (4.0-10.2) K/uL RBC (3.77-5.09) M/uL Hgb (11.7-15.5) g/dL Hct (34.0-46.0) % MCV (84.0-98.0) fL MCH (28.2-33.3) pg MCHC (31.7-36.0) g/dL RDW (11.2-14.1) % Plt Count (150-350) K/uL Neut % (Auto) (45.0-80.0) % Lymph % (Auto) (10.0-50.0) % Sherman % (Auto) (2.0-14.0) % Eos % (Auto) (0.0-5.0) % Baso % (Auto) (0.0-2.0) % Neut # (Auto) (1.40-7.00) K/uL Lymph # (Auto) (0.50-3.50) K/uL Sherman # (Auto) (0.00-1.00) K/uL Eos # (Auto) (0.00-0.50) K/uL Baso # (Auto) (0.00-0.20) K/uL PT (9.5-12.0) SEC INR APTT (21.0-31.3) SEC D-Dimer, Quantitative (0-400) ng/mL Sodium (136-145) mmol/L Potassium (3.5-5.1) mmol/L Chloride (98-107) mmol/L Carbon Dioxide (21.0-32.0) mmol/L BUN (7-18) mg/dL Creatinine (0.51-1.17) mg/dL Est Cr Clr Drug Dosing mL/min Estimated GFR (MDRD) mL/min Glucose (74-106) mg/dL Lactic Acid (0.4-2.0) mmol/L Uric Acid (2.6-7.2) mg/dL Calcium (8.5-10.1) mg/dL Magnesium (1.8-2.4) mg/dL Total Bilirubin (0.2-1.0) mg/dL AST (15-37) U/L ALT (12-78) U/L Alkaline Phosphatase (46-116) IU/L Creatine Kinase (26-308) U/L Creatine Kinase Index (0.0-2.5) % CK-MB (CK-2) (0.00-3.60) ng/mL Troponin I (0.000-0.056) ng/mL NT-Pro-B Natriuret Pep (0-125) pg/mL Total Protein (6.4-8.2) g/dL Albumin (3.4-5.0) g/dL Amylase 43 (25-115) U/L Lipase 124 (73-393) U/L TSH, Ultra Sensitive (0.358-3.740) mIU/mL HCG, Qual (NEGATIVE) Meds: Medications Generic Name Dose Route Start Last Admin Trade Name Freq PRN Reason Stop Dose Admin Sodium Chloride 10 ml 10/31/18 13:28 10/31/18 13:46 Saline Flush FLUSH 10 ml ASDIRECTED PRN Administration Keep Vein Open Discontinued Medications Generic Name Dose Route Start Last Admin Trade Name Freq PRN Reason Stop Dose Admin Aspirin 324 mg 10/31/18 13:28 10/31/18 13:38 Aspirin CHEW 10/31/18 13:29 324 mg ONETIME ONE Administration Famotidine 40 mg 10/31/18 13:28 10/31/18 13:45 Pepcid IVPUSH 10/31/18 13:29 40 mg ONETIME ONE Administration Ticagrelor 180 mg 10/31/18 13:28 10/31/18 13:38 Brilinta PO 10/31/18 13:29 180 mg ONETIME ONE Administration - Radiology Interpretation Free Text/Narrative:: Heart monitor shows normal sinus rhythm with heart rate in the 80s to 90s with no ectopy or arrhythmia Chest x-ray, portable, shows no evidence of cardiomegaly, CHF, pulmonary infiltrates, pneumothorax, etc. Mildly prominent proximal aortic arch. Departure - Departure Time of Disposition: 14:55 Disposition: Home, Self-Care 01 Condition: Good Clinical Impression: Tobacco abuse counseling, Mixed anxiety depressive disorder, Dyslipidemia Leukocytosis Qualifiers: Leukocytosis type: bandemia Qualified Code(s): D72.825 - Bandemia Chest pain Qualifiers: Chest pain type: unspecified Qualified Code(s): R07.9 - Chest pain, unspecified Hypertension Qualifiers: Hypertension type: essential hypertension Qualified Code(s): I10 - Essential ( primary) hypertension Prescriptions: Omeprazole Magnesium [Prilosec Otc] 20 mg PO BIDAC #30 tablet.dr Instructions: Steps to Quit Smoking, [id number], Health Risks of Smoking, Heart-Healthy Eating Plan, [id number] Referrals: Cat Valdivia PA-C [Primary Care Provider] - Forms: ED Department Discharge, ED Return to Work/School Form Additional Instructions: 1. Followup with your regular provider in 10-14 days as directed with recommended repeat CBC and discussion of abdominal ultrasound results as below at that time. Bring these discharge instructions with you to that visit. 2. Abdominal ultrasound in this facility at 08:30 a.m. tomorrow morning as scheduled. 3. [place] diet including encouragement of oral fluids such as sports drinks, etc. for 24-48 hours as directed. Advance to strict low-fat, low-cholesterol diet as tolerated thereafter. 4. Work excuse- See Form 5. You may use additional OTC antacids and/or Pepcid per labeled instructions as needed/discussed 6. Stop all tobacco use LIZANDRO as directed/per provided information and consider contacting Quit LIne, etc.. 7. Immediately after this visit verify that your cellular telephone's voicemail has been activated and is empty. Also verify that your home telephone 's answering machine is operating properly and has space to receive messages. Note that it is sometimes necessary for us to be able to contact you at a later date to discuss your medical care. 8. Please remember that we are ALWAYS here for you and want to answer any questions you may have. Feel free to call the hospital any time and we call you back LIZANDRO. - Problem List & Annotations (1) Chest pain SNOMED Code(s): 20236738 Code(s): R07.9 - CHEST PAIN, UNSPECIFIED Status: Acute Priority: High Current Visit: Yes Onset Date: 01/05/18 Annotation/Comment:: Chest pain protocol was initiated upon patient's arrival to the emergency room. Note, however, recent extensive negative cardiac workup, including heart catheterization and echocardiogram as above. Symptoms suspicious of atypical chest pain possibly secondary to dysfunctional gallbladder, GERD, etc. especially since the patient had chicken nuggets immediately prior to onset of the above symptoms. Work excuse provided. Complete Abdominal ultrasound to be conducted in this facility tomorrow with consideration of a HIDA scan, EGD, etc. thereafter depending on these results and/or clinical course. Dietary information provided. Symptoms significantly improved with medical therapy as above including high-dose IV Pepcid. Qualifiers: Chest pain type: unspecified Qualified Code(s): R07.9 - Chest pain, unspecified (2) Leukocytosis SNOMED Code(s): 808007122, 520091792 Code(s): D72.829 - ELEVATED WHITE BLOOD CELL COUNT, UNSPECIFIED Status: Acute Priority: High Current Visit: Yes Onset Date: 01/05/18 Annotation/ Comment:: Leukocytosis of unknown etiology possibly secondary to recent . Close follow-up by regular provider as per discharge instructions. No recent fever, UTI symptoms, signs of infection, etc. with further workup depending on her clinical course. Patient is unable to provide us with a UA specimen. Qualifiers: Leukocytosis type: bandemia Qualified Code(s): D72.825 - Bandemia (3) Dyslipidemia SNOMED Code(s): 698638114 Code(s): E78.5 - HYPERLIPIDEMIA, UNSPECIFIED Status: Chronic Priority: Medium Current Visit: Yes Annotation/Comment:: Dietary information provided as above. Weight loss in moderation advisable after her gallbladder status has been determined. (4) Hypertension SNOMED Code(s): 96167633 Code(s): I10 - ESSENTIAL (PRIMARY) HYPERTENSION Status: Chronic Current Visit: Yes Onset Date: 10/22/14 Annotation/Comment:: Note recent preeclampsia requiring induction as above. Continue to observe closely by her regular provider. Qualifiers: Hypertension type: essential hypertension Qualified Code(s): I10 - Essential (primary) hypertension (5) Mixed anxiety depressive disorder SNOMED Code(s): 326221187 Code(s): F41.8 - OTHER SPECIFIED ANXIETY DISORDERS Status: Chronic Priority: Medium Current Visit: Yes Annotation/Comment:: Stable by patient history. Some anxiety component today. (6) Tobacco abuse counseling SNOMED Code(s): 634836360, 426723446, [id number] Code(s): Z71.6 - TOBACCO ABUSE COUNSELING Status: Chronic Priority: Medium Current Visit: Yes Annotation/Comment:: Tobacco cessation once again strongly encouraged, which would beneficial for her migraine headaches, children at home, etc.. Information once again provided. - Problem List Review Problem List Initiated/Reviewed/Updated: Yes - My Orders Last 24 Hours: My Active Orders 10/31/18 13:28 Cardiac Monitoring [RC] . DIRECTED EKG Documentation Completion [RC] ASDIRECTED Oxygen Therapy, ED [RC] PRN Peripheral IV Care [RC] . DIRECTED Pulse Oximetry [RC] CONTINUOUS Up With Assistance [RC] PFP Vital Signs [RC] PFP Chest 1V Frontal [CR] Stat Sodium Chloride 0.9% [Saline Flush] 10 ml FLUSH ASDIRECTED PRN Obtain Past Medical Record [OM.PC] Urgent Peripheral IV Insertion Adult [OM.PC] Stat Resuscitation Status Stat 10/31/18 Breakfast Nothing per Oral Now Diet [DIET] - Assessment/Plan Last 24 Hours: My Active Orders 10/31/18 13:28 Cardiac Monitoring [RC] . DIRECTED EKG Documentation Completion [RC] ASDIRECTED Oxygen Therapy, ED [RC] PRN Peripheral IV Care [RC] . DIRECTED Pulse Oximetry [RC] CONTINUOUS Up With Assistance [RC] PFP Vital Signs [RC] PFP Chest 1V Frontal [CR] Stat Sodium Chloride 0.9% [Saline Flush] 10 ml FLUSH ASDIRECTED PRN Obtain Past Medical Record [OM.PC] Urgent Peripheral IV Insertion Adult [OM.PC] Stat Resuscitation Status Stat 10/31/18 Breakfast Nothing per Oral Now Diet [DIET] Assessment:: As above Plan: As above. Extensive precautions were given to the patient, who is in agreement with the treatment plan. See Patient Instructions for further treatment and plan.
[2018-10-31 14:21] LABS: CHLORIDE,CL 107 mmol/L (98-107); SODIUM,NA 144 mmol/L (136-145)
[2018-10-31 15:51] VITALS: BP 137/87; PULSE 90
== END 2018-10-31 14:55 | disposition home or self-care (01) ==
LOC: LL.ED 13:20
DX: R07.9 Chest pain, unspecified (principal); D72.825 Bandemia; F41.8 Other specified anxiety disorders; E13.40 Other specified diabetes mellitus with diabetic neuropathy, unspecified; M19.90 Unspecified osteoarthritis, unspecified site; K21.9 Gastro-esophageal reflux disease without esophagitis; I11.0 Hypertensive heart disease with heart failure; I50.9 Heart failure, unspecified; E66.9 Obesity, unspecified; F17.210 Nicotine dependence, cigarettes, uncomplicated; Z79.899 Other long term (current) drug therapy; Z88.8 Allergy status to other drugs, medicaments and biological substances; Z90.49 Acquired absence of other specified parts of digestive tract; Z90.710 Acquired absence of both cervix and uterus; Z90.722 Acquired absence of ovaries, bilateral; Z98.890 Other specified postprocedural states; Z98.51 Tubal ligation status; Z71.6 Tobacco abuse counseling; Z68.30 Body mass index [BMI] 30.0-30.9, adult; Z86.73 Personal history of transient ischemic attack (TIA), and cerebral infarction without residual deficits
CPT/HCPCS: 36415; 71045; 80053; 82150; 82550; 82553; 83605; 83690; 83735; 83880; 84443; 84484; 84550; 84703; 85025; 85379; 85610; 85730; 93005; 96374; 99285-25; A9270-GY; J3490

== ENCOUNTER 2019-10-25 20:18 | Emergency (ER) | payer MEDICAID ==
[2019-10-25 20:23] VITALS: BP 140/83; PULSE 87
--- NOTE | 2019-10-25 21:00 | EDM.PDOC ---
ED HPI GENERAL MEDICAL PROBLEM - General Chief Complaint: General Stated Complaint: felling weak and faint Time Seen by Provider: 10/25/19 20:40 Source of Information: Reports: Patient History Limitations: Reports: No Limitations - History of Present Illness INITIAL COMMENTS - FREE TEXT/NARRATIVE: She presents to the emergency department with complaints that she feels like she might pass out. About 3 hours ago, while at work, she felt a sudden shooting pain like a shock coming from the left side of her neck up into her head. This was associated with immediate dizziness. She sat down and the symptoms seemed to pass. She did have 1 more episode of less severe dizziness at work. At home she was preparing to help her daughter shower and felt dizzy again and then came to the emergency department. She describes dizziness like the room is spinning and some unsteadiness. No blurring or double vision. No nausea or vomiting. No further neck pain. No chest pain or tightness. No irregular heartbeats. She does have a history of supraventricular tachycardia. She had an echocardiogram done last week which was unremarkable. She had been on metoprolol in the past for the tachycardia but has been off of it for some time. She has been getting some elevated heart rates recently and is supposed to be restarting the metoprolol. She does have a history of central vertigo in the past and elevated triglycerides. She does take fluoxetine 60 mg daily for anxiety. No fever or chills. She denies any recent illnesses. - Related Data Allergies Allergy/AdvReac Type Severity Reaction Status Date / Time venlafaxine [From Effexor] Allergy Itching Verified 10/25/19 20:23 Home Meds: Home Meds FLUoxetine [PROzac] 60 mg PO QAM 08/28/15 [History] Meclizine [Antivert] 25 mg PO Q6H PRN #20 tab 10/25/19 [Rx] atorvaSTATin [Lipitor] 10 mg PO BEDTIME 10/25/19 [History] Past Medical History HEENT History: Reports: Impaired Vision Other HEENT History: Wears glasses or soft contacts Cardiovascular History: Reports: Arrhythmia, High Cholesterol, Hypertension, Other (See Below) Other Cardiovascular History: PVCs by Holter monitor. History of sinus arrhythmia, borderline tachycardia with questionable atrial tachycardia versus sinus tachycardia on 02/03/15 based on review of emergency room records. Intermittent hypertension not currently being treated. Dyslipidemia. Respiratory History: Reports: None Gastrointestinal History: Reports: None Genitourinary History: Reports: None VISUAL ARTIST History: Reports: , Spontaneous Other VISUAL ARTIST History: Normal LMP on 10/13/18. Last delivery on 08/27/18 at about 37 weeks gestation by induction secondary to preeclampsia. hemorrhage in 2013 as below. 2000 Note history of first trimester SABs 4 with last SAB requiring D&C in May 2016. Otherwise full term normal spontaneous vaginal deliveries without complications. Musculoskeletal History: Reports: None Neurological History: Reports: Headaches, Chronic, Migraines, Seizure, Vertigo, Other (See Below) Other Neuro History: History of mixed Migraine-tension headaches since 2012 with previous negative workup as below. 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 Chronic intermittent vertigo since October 2014. 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 Immunologic History: Reports: None Oncologic (Cancer) History: Reports: None Dermatologic History: Reports: None - Infectious Disease History Infectious Disease History: Reports: Chicken Pox. Denies: C-Difficile, Measles, Meningitis, Mononucleosis, MRSA, Mumps, Pertussis (Whooping Cough), Rubella, Scarlet Fever, Shingles, TB, VRE - Past Surgical History Head Surgeries/Procedures: Reports: None HEENT Surgical History: Reports: None Cardiovascular Surgical History: Reports: None Respiratory Surgical History: Reports: None GI Surgical History: Reports: Appendectomy, Other (See Below) Other GI Surgeries/Procedures: Open appendectomy at age 8 Female Surgical History: Reports: D&C, Dilitation & Evacuation, Other (See Below) Other Female Surgeries/Procedures: Laparoscopic Bilateral salpingoectomy on 10/17/17. D&C on 06/09/16 secondary to SAB as above. Endocrine Surgical History: Reports: None Neurological Surgical History: Reports: None Musculoskeletal Surgical History: Reports: None Oncologic Surgical History: Reports: None Dermatological Surgical History: Reports: None - Past Imaging History Past Imaging History: Reports: Angiography (Negative heart catheterization on 01/07/18.), Cardiac Echo (Normal echocardiogram on 01/06/18 with ejection fraction of 65%.), CAT Scan (CT scan of the head in about 2012.), EEG (Sleep deprived EEG in about 2012.), Holter Monitor (02/16/15), MRI (MRI of the brain on 10/08/17 and 01/20/15.), Ultrasound (Multiple OB ultrasounds, including last OB ultrasound with concomitant umbilical artery Doppler evaluation on 04/25/18. Right breast ultrasound on 01/04/17.), Venous Doppler (Venous Doppler study of the right leg on 10/01/17.), Other (See Below) Social & Family History - Family History HEENT: Reports: None Cardiac: Reports: Aneurysm, CAD, High Cholesterol, Hypertension, PA, Stent, Other (See Below) Other Cardiac Family History: Father with history of PA in his early 20s with no procedures required. Maternal grandmother with PA in her late her 30s with PTCA/stents required. Father with cerebral aneurysms as below. Parents with hypertension and hyperlipidemia. Respiratory: Reports: None GI: Reports: Hepatitis, Other (See Below) Other GI Family History: Father with unknown type of hepatitis. : Reports: None OBGYN: Reports: None Musculoskeletal: Reports: Arthritis, Osteoarthritis, Other (See Below) Other Musculoskeletal Family History: Father and brother with Raynaurd's syndrome. Neurological: Reports: Alzheimers Disease, Cerebral Aneurysms, CVA, Dementia, Other (See Below) Other Neurological Family History: Maternal grandmother with dementia. Paternal grandfather with hemorrhagic CVA in his 40s secondary to cerebral aneurysm. Psychiatric: Reports: Anxiety, Depression, Other (See Below) Other Psychiatric Family History: Anxiety depression disorder in parents, sister, and brother. Endocrine/Metabolic: Reports: Diabetes, type II, IDDM, Other (See Below) Other Endocrine/Metabolic Family History: Paternal grandfather and father with IDDM. Hematologic: Reports: None Immunologic: Reports: None Dermatologic: Reports: None Oncologic: Reports: Prostate, Uterine, Other (See Below) Other Oncologic Family History: Father with prostate cancer. Maternal grandmother and paternal aunt both with uterine cancer in their 40s. 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.) ED ROS GENERAL - Review of Systems Review Of Systems: See Below Constitutional: Denies: Fever, Chills, Weakness, Fatigue HEENT: Denies: Ear Pain, Eye Pain, Rhinitis, Sinus Problem, Throat Pain, Vision Change Respiratory: Denies: Shortness of Breath, Wheezing, Cough Cardiovascular: Denies: Chest Pain, Palpitations Endocrine: Denies: Fatigue GI/Abdominal: Denies: Abdominal Pain, Nausea, Vomiting : Denies: Dysuria, Frequency, Urgency Musculoskeletal: Reports: Neck Pain Skin: Reports: No Symptoms Neurological: Denies: Confusion, Dizziness, Headache, Numbness, Paresthesia Psychiatric: Reports: Anxiety Hematologic/Lymphatic: Denies: Anemia Immunologic: Reports: No Symptoms ED EXAM, GENERAL - Physical Exam Exam: See Below Exam Limited By: No Limitations General Appearance: Alert, WD/WN, No Apparent Distress Eye Exam: Bilateral Eye: EOMI, PERRL Ears: Normal External Exam, Normal Canal, Hearing Grossly Normal, Normal TMs Nose: Normal Inspection, Normal Mucosa Throat/Mouth: Normal Inspection, Normal Teeth, No Airway Compromise Head: Atraumatic, Normocephalic Neck: Normal Inspection, Supple, Non-Tender, Full Range of Motion, Other (Negative spurling sign). No: Lymphadenopathy (L), Lymphadenopathy (R) Respiratory/Chest: No Respiratory Distress, Lungs Clear, Normal Breath Sounds Cardiovascular: Regular Rate, Rhythm, No Edema, No Gallop, No Murmur, No Rub GI/Abdominal: Normal Bowel Sounds, Soft, Non-Tender, No Organomegaly Neurological: Alert, Oriented, CN II-XII Intact, Normal Cognition, No Motor/Sensory Deficits, Other (Normal cerebellar function) Psychiatric: Normal Affect, Normal Mood Skin Exam: Warm, Dry Lymphatic: No Adenopathy EKG INTERPRETATION EKG Date: 10/25/19 Time: 20:30 Rhythm: NSR [place]: Normal P-Wave: Present QRS: Normal ST-T: Normal QT: Normal Course - Vital Signs Text/Narrative:: She remained stable with minimal dizziness throughout the emergency department stay. EKG and lab work were unremarkable. Will discharge to home with meclizine as needed for dizziness. Last Recorded V/S: Last Vital Signs Temp 36.7 C 10/25/19 20:20 Pulse 87 10/25/19 20:20 Resp 16 10/25/19 20:20 BP 140/83 10/25/19 20:20 Pulse Ox 98 10/25/19 20:20 - Orders/Labs/Meds Orders: Active Orders 24 hr Category Date Time Status EKG Documentation Completion [RC] ASDIRECTED Care 10/25/19 20:50 Active EKG 12 Lead [EK] Stat Ther 10/25/19 20:50 Ordered Labs: Laboratory Tests 10/25/19 10/25/19 Range/Units 21:00 21:00 WBC 11.4 H (4.0-10.2) K/uL RBC 4.59 (3.77-5.09) M/uL Hgb 13.6 D (11.7-15.5) g/dL Hct 41.7 (34.0-46.0) % MCV 90.8 D (84.0-98.0) fL MCH 29.6 (28.2-33.3) pg MCHC 32.6 (31.7-36.0) g/dL RDW 14.8 H (11.2-14.1) % Plt Count 179 D (150-350) K/uL Neut % (Auto) 61.8 (45.0-80.0) % Lymph % (Auto) 26.9 (10.0-50.0) % [place] % (Auto) 6.3 (2.0-14.0) % Eos % (Auto) 4.6 (0.0-5.0) % Baso % (Auto) 0.4 (0.0-2.0) % Neut # (Auto) 7.06 H (1.40-7.00) K/uL Lymph # (Auto) 3.07 (0.50-3.50) K/uL [place] # (Auto) 0.72 (0.00-1.00) K/uL Eos # (Auto) 0.53 H (0.00-0.50) K/uL Baso # (Auto) 0.04 (0.00-0.20) K/uL Sodium 138 (136-145) mmol/L Potassium 3.6 (3.5-5.1) mmol/L Chloride 104 (98-107) mmol/L Carbon Dioxide 24.9 (21.0-32.0) mmol/L BUN 14 (7-18) mg/dL Creatinine 0.82 (0.51-1.17) mg/dL Est Cr Clr Drug Dosing 99.33 mL/min Estimated GFR (MDRD) > 60 mL/min Glucose 123 H (74-106) mg/dL Calcium 8.5 (8.5-10.1) mg/dL Magnesium 1.9 (1.8-2.4) mg/dL Total Bilirubin 0.2 (0.2-1.0) mg/dL AST 11 L (15-37) U/L ALT 23 (12-78) U/L Alkaline Phosphatase 94 (46-116) IU/L Troponin I 0.000 (0.000-0.056) ng/mL Total Protein 6.7 (6.4-8.2) g/dL Albumin 3.4 (3.4-5.0) g/dL Departure - Departure Time of Disposition: 21:40 Disposition: Home, Self-Care 01 Condition: Good Clinical Impression: Dizziness - Discharge Information *PRESCRIPTION DRUG MONITORING PROGRAM REVIEWED*: No *COPY OF PRESCRIPTION DRUG MONITORING REPORT IN PATIENT ERIBERTO: No Prescriptions: Meclizine [Antivert] 25 mg PO Q6H PRN #20 tab PRN Reason: Dizziness Referrals: Cat Valdivia PA-C [Primary Care Provider] - Forms: ED Department Discharge Additional Instructions: Meclizine 25 mg 1 tablet up to 4 times daily as needed for dizziness. Push fluids. Follow-up with primary provider if not improving. Sepsis Event Note (ED) - Evaluation Sepsis Screening Result: No Definite Risk - Focused Exam Vital Signs: Vital Signs Temp Pulse Resp BP Pulse Ox 10/25/19 20:20 36.7 C 87 16 140/83 98 - My Orders Last 24 Hours: My Active Orders 10/25/19 20:50 EKG Documentation Completion [RC] ASDIRECTED EKG 12 Lead [EK] Stat - Assessment/Plan Last 24 Hours: My Active Orders 10/25/19 20:50 EKG Documentation Completion [RC] ASDIRECTED EKG 12 Lead [EK] Stat
[2019-10-25 21:25] LABS: CHLORIDE,CL 104 mmol/L (98-107); SODIUM,NA 138 mmol/L (136-145)
== END 2019-10-25 21:56 | disposition home or self-care (01) ==
LOC: LL.ED 20:18
DX: R42 Dizziness and giddiness (principal); I10 Essential (primary) hypertension; M54.2 Cervicalgia; F41.9 Anxiety disorder, unspecified; F17.210 Nicotine dependence, cigarettes, uncomplicated; E66.9 Obesity, unspecified; Z68.37 Body mass index [BMI] 37.0-37.9, adult; Z88.8 Allergy status to other drugs, medicaments and biological substances
CPT/HCPCS: 36415; 80053; 83735; 84484; 85025; 93005; 99284-25

== ENCOUNTER 2020-01-31 21:17 | Emergency (ER) | payer MEDICAID ==
[2020-01-31 21:29] VITALS: BP 148/93; PULSE 80
--- NOTE | 2020-01-31 21:47 | EDM.PDOC ---
ED HPI GENERAL MEDICAL PROBLEM - General Chief Complaint: General Stated Complaint: neck pain Time Seen by Provider: 01/31/20 21:30 Source of Information: Reports: Patient History Limitations: Reports: No Limitations - History of Present Illness INITIAL COMMENTS - FREE TEXT/NARRATIVE: She is seen in the emergency department for evaluation of chest pain. She reports aching pain in the left upper chest wall. Seems to start around the collarbone and radiates down. She has some pain with movement of the left arm after shoulder. No pain in the neck. She does get some increased pain with deep inspiration. Pain started about an hour prior to arrival. She did take 800 mg of ibuprofen, but no other treatments. No chest tightness. No shortness of breath. No nausea or vomiting. No pain radiating into the arm. No numbness or tingling in the fingers. She is a smoker, but no other risk factors for coronary artery disease. Left Neck Pain Score (Numeric/FACES): 5 - Related Data Allergies Allergy/AdvReac Type Severity Reaction Status Date / Time venlafaxine [From Effexor] Allergy Itching Verified 01/31/20 21:19 Home Meds: Home Meds FLUoxetine [PROzac] 60 mg PO QAM 08/28/15 [History] Meclizine [Antivert] 25 mg PO Q6H PRN #20 tab 10/25/19 [Rx] atorvaSTATin [Lipitor] 10 mg PO BEDTIME 10/25/19 [History] Past Medical History HEENT History: Reports: Impaired Vision Other HEENT History: Wears glasses or soft contacts Cardiovascular History: Reports: Arrhythmia, High Cholesterol, Hypertension, Other (See Below) Other Cardiovascular History: PVCs by Holter monitor. History of sinus arrhythmia, borderline tachycardia with questionable atrial tachycardia versus sinus tachycardia on 02/03/15 based on review of emergency room records. Intermittent hypertension not currently being treated. Dyslipidemia. 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 Last delivery on 08/27/18 at about 37 weeks gestation by induction secondary to preeclampsia. hemorrhage in 2013 as below. 2000 Note history of first trimester SABs 4 with last SAB requiring D&C in May 2016. Otherwise full term normal spontaneous vaginal deliveries without complications. Musculoskeletal History: Reports: None Neurological History: Reports: Headaches, Chronic, Migraines, Seizure, Vertigo, Other (See Below) Other Neuro History: History of mixed Migraine-tension headaches since 2012 with previous negative workup as below. 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 Chronic intermittent vertigo since October 2014. 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 Immunologic History: Reports: None Oncologic (Cancer) History: Reports: None Dermatologic History: Reports: None - Infectious Disease History Infectious Disease History: Reports: Chicken Pox - Past Surgical History Head Surgeries/Procedures: Reports: None HEENT Surgical History: Reports: None Cardiovascular Surgical History: Reports: None Respiratory Surgical History: Reports: None GI Surgical History: Reports: Appendectomy, Other (See Below) Other GI Surgeries/Procedures: Open appendectomy at age 8 Female Surgical History: Reports: D&C, Dilitation & Evacuation, Other (See Below) Other Female Surgeries/Procedures: Laparoscopic Bilateral salpingoectomy on 10/17/17. D&C on 06/09/16 secondary to SAB as above. Endocrine Surgical History: Reports: None Neurological Surgical History: Reports: None Musculoskeletal Surgical History: Reports: None Oncologic Surgical History: Reports: None Dermatological Surgical History: Reports: None - Past Imaging History Past Imaging History: Reports: Angiography (Negative heart catheterization on 01/07/18.), Cardiac Echo (Normal echocardiogram on 01/06/18 with ejection fraction of 65%.), CAT Scan (CT scan of the head in about 2012.), EEG (Sleep deprived EEG in about 2012.), Holter Monitor (02/16/15), MRI (MRI of the brain on 10/08/17 and 01/20/15.), Ultrasound (Multiple OB ultrasounds, including last OB ultrasound with concomitant umbilical artery Doppler evaluation on 04/25/18. Right breast ultrasound on 01/04/17.), Venous Doppler (Venous Doppler study of the right leg on 10/01/17.), Other (See Below) Social & Family History - Family History HEENT: Reports: None Cardiac: Reports: Aneurysm, CAD, High Cholesterol, Hypertension, MS, Stent, Other (See Below) Other Cardiac Family History: Father with history of MS in his early 20s with no procedures required. Maternal grandmother with MS in her late her 30s with PTCA/stents required. Father with cerebral aneurysms as below. Parents with hypertension and hyperlipidemia. Respiratory: Reports: None GI: Reports: Hepatitis, Other (See Below) Other GI Family History: Father with unknown type of hepatitis. : Reports: None OBGYN: Reports: None Musculoskeletal: Reports: Arthritis, Osteoarthritis, Other (See Below) Other Musculoskeletal Family History: Father and brother with Raynaurd's syndrome. Neurological: Reports: Alzheimers Disease, Cerebral Aneurysms, CVA, Dementia, Other (See Below) Other Neurological Family History: Maternal grandmother with dementia. Paternal grandfather with hemorrhagic CVA in his 40s secondary to cerebral aneurysm. Psychiatric: Reports: Anxiety, Depression, Other (See Below) Other Psychiatric Family History: Anxiety depression disorder in parents, sister, and brother. Endocrine/Metabolic: Reports: Diabetes, type II, IDDM, Other (See Below) Other Endocrine/Metabolic Family History: Paternal grandfather and father with IDDM. Hematologic: Reports: None Immunologic: Reports: None Dermatologic: Reports: None Oncologic: Reports: Prostate, Uterine, Other (See Below) Other Oncologic Family History: Father with prostate cancer. Maternal grandmother and paternal aunt both with uterine cancer in their 40s. 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 Denies: Lightheadedness, Palpitations GI/Abdominal: Denies: Abdominal Pain, Constipation, Diarrhea, Nausea, Vomiting Musculoskeletal: Reports: Muscle Pain Skin: Reports: No Symptoms Neurological: Denies: Confusion, Dizziness ED EXAM, GENERAL - Physical Exam Exam: See Below Free Text/Narrative:: Chest wall: Mild diffuse tenderness over the left upper chest wall at and just below the clavicle. No significant tightness. No palpable defect. Left shoulder: No swelling or deformity. No discoloration. No tenderness. Full active range of motion. Significant pain with resisted external rotation of the shoulder and this does reproduce her chest pain. Mild similar pain with resisted forward flexion at the shoulder with the shoulder abducted to 90 degrees. Negative impingement. Exam Limited By: No Limitations General Appearance: Alert, WD/WN, No Apparent Distress Head: Atraumatic, Normocephalic Neck: Normal Inspection, Non-Tender, Full Range of Motion Respiratory/Chest: No Respiratory Distress, Lungs Clear, Normal Breath Sounds Cardiovascular: Regular Rate, Rhythm, No Murmur GI/Abdominal: Normal Bowel Sounds, Soft, Non-Tender Neurological: Alert, Oriented Psychiatric: Normal Affect, Normal Mood Skin Exam: Warm, Dry Course - Vital Signs Last Recorded V/S: Last Vital Signs Temp 36.9 C 01/31/20 21:29 Pulse 80 01/31/20 21:29 Resp 18 01/31/20 21:29 BP 148/93 H 01/31/20 21:29 Pulse Ox 100 01/31/20 21:29 - Orders/Labs/Meds Orders: Active Orders 24 hr Category Date Time Status Discharge Patient [ADT] Routine ADT 01/31/20 21:47 Ordered - Re-Assessments/Exams Free Text/Narrative Re-Assessment/Exam: 01/31/20 2140 Given the location of her pain and activities that reproduce the pain, this appears to be chest wall in origin. No indication of underlying cardiac etiology. Departure - Departure Time of Disposition: 21:45 Disposition: Home, Self-Care 01 Condition: Good Clinical Impression: Acute chest wall pain - Discharge Information *PRESCRIPTION DRUG MONITORING PROGRAM REVIEWED*: Not Applicable *COPY OF PRESCRIPTION DRUG MONITORING REPORT IN PATIENT ERIBERTO: Not Applicable Instructions: Chest Wall Pain, [id number] Referrals: Cat Valdivia PA-C [Primary Care Provider] - Forms: ED Department Discharge Additional Instructions: Ice the painful area for 15 minutes 3-4 times daily. Ibuprofen 800 mg 3 times daily with food for 5 days. Tylenol as needed for additional pain control. Follow-up with primary provider if symptoms are persisting over the next several days, or with significant worsening. Sepsis Event Note (ED) - Evaluation Sepsis Screening Result: No Definite Risk - Focused Exam Vital Signs: Vital Signs Temp Pulse Resp BP Pulse Ox 01/31/20 21:29 36.9 C 80 18 148/93 H 100 - My Orders Last 24 Hours: My Active Orders 01/31/20 21:47 Discharge Patient [ADT] Routine - Assessment/Plan Last 24 Hours: My Active Orders 01/31/20 21:47 Discharge Patient [ADT] Routine
== END 2020-01-31 21:50 | disposition home or self-care (01) ==
LOC: LL.ED 21:17
DX: R07.89 Other chest pain (principal); I10 Essential (primary) hypertension; Z88.8 Allergy status to other drugs, medicaments and biological substances; Z90.49 Acquired absence of other specified parts of digestive tract; Z79.899 Other long term (current) drug therapy
CPT/HCPCS: 99283; 99284

== ENCOUNTER 2020-06-28 06:14 | Emergency (ER) | payer MEDICAID ==
[2020-06-28 07:02] LABS: CHLORIDE,CL 105 mmol/L (98-107); SODIUM,NA 138 mmol/L (136-145)
[2020-06-28] MEDS: Iopamidol 755 Mg/ML 100 ML Bottle ONE (09:24)
[2020-06-28] MEDS: Apixaban 5 MG Tab PO ONE (09:30)
[2020-06-28] MEDS: Ketorolac 30 MG/ML SDV IVPUSH ONE (09:30)
[2020-06-28] MEDS: Sodium Chloride 0.9% 10 ML Syringe FLUSH PRN (09:32)
[2020-06-28] MEDS: traMADol 50 MG Tab PO ONE (09:42)
--- NOTE | 2020-06-28 10:03 | EDM.PDOC ---
ED HPI GENERAL MEDICAL PROBLEM - General Chief Complaint: General Stated Complaint: Shoulder and back pain with breathing Time Seen by Provider: 06/28/20 09:07 Source of Information: Reports: Patient History Limitations: Reports: No Limitations - History of Present Illness INITIAL COMMENTS - FREE TEXT/NARRATIVE: Patient comes to ER with complaint of left chest/shoulder/upper back pain present for less than 24 hours. No history of injury. Waxes and wanes/moves around. Worse with inhalation. Feels mild SOB at times. No history of similar pain in past. Covid infection diagnosed first week of May/on month ago. Was feeling good/normal prior to symptoms developing yesterday. Denies other changes. Treatments CLERICAL SUPPORT: Reports: Acetaminophen, Other Medication(s), Other (see below) Other Treatments CLERICAL SUPPORT: 06/28/2020 @ 2100 Left Shoulder Pain Score (Numeric/FACES): 8 Lower Back Pain Score (Numeric/FACES): 7 - Related Data Allergies Allergy/AdvReac Type Severity Reaction Status Date / Time venlafaxine [From Effexor] Allergy Itching Verified 06/28/20 06:17 Home Meds: Home Meds FLUoxetine [PROzac] 60 mg PO QAM 08/28/15 [History] Acetaminophen [Tylenol] 650 mg PO Q4HR PRN 06/28/20 [History] Apixaban [Eliquis] 5 mg PO BID #74 tablet 06/28/20 [Rx] Bismuth Subsalicylate [Pepto Bismol] 15 ml PO ASDIRECTED PRN 06/28/20 [History] busPIRone [Buspar] 10 mg PO DAILY PRN 06/28/20 [History] traMADol [Ultram] 50 mg PO Q6H PRN #20 tab 06/28/20 [Rx] Past Medical History HEENT History: Reports: Impaired Vision Other HEENT History: Wears glasses or soft contacts Cardiovascular History: Reports: Arrhythmia, High Cholesterol, Hypertension, Other (See Below) Other Cardiovascular History: PVCs by Holter monitor. History of sinus arrhythmia, borderline tachycardia with questionable atrial tachycardia versus sinus tachycardia on 02/03/15 based on review of emergency room records. Intermittent hypertension not currently being treated. Dyslipidemia. Respiratory History: Reports: None Gastrointestinal History: Reports: None Genitourinary History: Reports: None [employer] History: Reports: , Spontaneous Other [employer] History: Normal LMP on 10/13/18. Last delivery on 08/27/18 at about 37 weeks gestation by induction secondary to preeclampsia. hemorrhage in 2013 as below. 2000 Note history of first trimester SABs 4 with last SAB requiring D&C in May 2016. Otherwise full term normal spontaneous vaginal deliveries without complications. Musculoskeletal History: Reports: None Neurological History: Reports: Headaches, Chronic, Migraines, Seizure, Vertigo, Other (See Below) Other Neuro History: History of mixed Migraine-tension headaches since 2012 with previous negative workup as below. 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 Chronic intermittent vertigo since October 2014. 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 Immunologic History: Reports: None Oncologic (Cancer) History: Reports: None Dermatologic History: Reports: None - Infectious Disease History Infectious Disease History: Reports: Chicken Pox - Past Surgical History Head Surgeries/Procedures: Reports: None HEENT Surgical History: Reports: None Cardiovascular Surgical History: Reports: None Respiratory Surgical History: Reports: None GI Surgical History: Reports: Appendectomy, Other (See Below) Other GI Surgeries/Procedures: Open appendectomy at age 8 Female Surgical History: Reports: D&C, Dilitation & Evacuation, Hysterectomy, Other (See Below) Other Female Surgeries/Procedures: Laparoscopic Bilateral salpingoectomy on 10/17/17. D&C on 06/09/16 secondary to SAB as above. Endocrine Surgical History: Reports: None Neurological Surgical History: Reports: None Musculoskeletal Surgical History: Reports: None Oncologic Surgical History: Reports: None Dermatological Surgical History: Reports: None - Past Imaging History Past Imaging History: Reports: Angiography (Negative heart catheterization on 01/07/18.), Cardiac Echo (Normal echocardiogram on 01/06/18 with ejection fraction of 65%.), CAT Scan (CT scan of the head in about 2012.), EEG (Sleep deprived EEG in about 2012.), Holter Monitor (02/16/15), MRI (MRI of the brain on 10/08/17 and 01/20/15.), Ultrasound (Multiple OB ultrasounds, including last OB ultrasound with concomitant umbilical artery Doppler evaluation on 04/25/18. Right breast ultrasound on 01/04/17.), Venous Doppler (Venous Doppler study of the right leg on 10/01/17.), Other (See Below) Social & Family History - Family History HEENT: Reports: None Cardiac: Reports: Aneurysm, CAD, High Cholesterol, Hypertension, MO, Stent, Other (See Below) Other Cardiac Family History: Father with history of MO in his early 20s with no procedures required. Maternal grandmother with MO in her late her 30s with PTCA/stents required. Father with cerebral aneurysms as below. Parents with hypertension and hyperlipidemia. Respiratory: Reports: None GI: Reports: Hepatitis, Other (See Below) Other GI Family History: Father with unknown type of hepatitis. : Reports: None OBGYN: Reports: None Musculoskeletal: Reports: Arthritis, Osteoarthritis, Other (See Below) Other Musculoskeletal Family History: Father and brother with Raynaurd's syndrome. Neurological: Reports: Alzheimers Disease, Cerebral Aneurysms, CVA, Dementia, Other (See Below) Other Neurological Family History: Maternal grandmother with dementia. Paternal grandfather with hemorrhagic CVA in his 40s secondary to cerebral aneurysm. Psychiatric: Reports: Anxiety, Depression, Other (See Below) Other Psychiatric Family History: Anxiety depression disorder in parents, sister, and brother. Endocrine/Metabolic: Reports: Diabetes, type II, IDDM, Other (See Below) Other Endocrine/Metabolic Family History: Paternal grandfather and father with IDDM. Hematologic: Reports: None Immunologic: Reports: None Dermatologic: Reports: None Oncologic: Reports: Prostate, Uterine, Other (See Below) Other Oncologic Family History: Father with prostate cancer. Maternal grandmother and paternal aunt both with uterine cancer in their 40s. - Tobacco Use Tobacco Use Status *Q: Current Every Day Tobacco User Years of Tobacco use: 10 Packs/Tins Daily: 0.5 - Caffeine Use Caffeine Use: Reports: Coffee - Recreational Drug Use Recreational Drug Use: No - Living Situation & Occupation Living situation: Reports: with Significant Other, with Family (Significant other and 4 children) Occupation: Employed ([employer].) ED ROS GENERAL - Review of Systems Review Of Systems: See Below Constitutional: Reports: No Symptoms HEENT: Reports: No Symptoms Respiratory: Reports: Shortness of Breath, Pleuritic Chest Pain. Denies: Wheezing, Cough, Sputum, Hemoptysis Cardiovascular: Reports: Chest Pain. Denies: Edema, Lightheadedness, Palpitations, Syncope GI/Abdominal: Reports: Other (mild abdominal discomfort yesterday/resolved today). Denies: Constipation, Diarrhea, Distension, Melena, Nausea, Vomiting : Reports: No Symptoms Musculoskeletal: Reports: Other (Left sided pain pectoral/shoulder/back area) Skin: Reports: No Symptoms Neurological: Reports: No Symptoms Psychiatric: Reports: Anxiety ED EXAM, GENERAL - Physical Exam Exam: See Below Exam Limited By: No Limitations General Appearance: Alert, WD/WN, No Apparent Distress, Anxious Eye Exam: Bilateral Eye: EOMI, PERRL Ears: Hearing Grossly Normal Nose: No: Nasal Deformity, Nasal Swelling, Nasal Drainage Throat/Mouth: Normal Lips, Normal Voice, No Airway Compromise Head: Atraumatic, Normocephalic Neck: Supple, Non-Tender, Full Range of Motion Respiratory/Chest: No Respiratory Distress, Lungs Clear, Normal Breath Sounds, No Accessory Muscle Use, Chest Non-Tender Cardiovascular: No Edema, No Murmur, Tachycardia GI/Abdominal: Normal Bowel Sounds, Soft, Non-Tender, No Distention (Female) Exam: Deferred Rectal (Female) Exam: Deferred Back Exam: No: CVA Tenderness (L), CVA Tenderness (R), Muscle Spasm, Paraspinal Tenderness, Vertebral Tenderness Extremities: Normal Inspection, Normal Range of Motion, Non-Tender, Normal Capillary Refill. No: Dhruv's Sign, Leg Pain, Limited Range of Motion, Increased Warmth, Mottled, Pallor, Redness Neurological: Alert, Oriented, CN II-XII Intact, Normal Cognition, Normal Gait, No Motor/Sensory Deficits Psychiatric: Anxious Skin Exam: Warm, Dry, Intact, Normal Color Course - Vital Signs Last Recorded V/S: Last Vital Signs Temp 36.2 C 06/28/20 06:15 Pulse 96 06/28/20 09:50 Resp 28 H 06/28/20 09:50 BP 121/85 06/28/20 09:50 Pulse Ox 99 06/28/20 09:50 - Orders/Labs/Meds Orders: Active Orders 24 hr Category Date Time Status EKG Documentation Completion [RC] ASDIRECTED Care 06/28/20 06:30 Active EKG Documentation Completion [RC] STAT Care 06/28/20 06:29 Active PE Chest [Ang Chest] [CT] Stat Exams 06/28/20 07:24 Taken Venous Doppler Lwr Ext Bi [US] Stat Exams 06/28/20 09:29 Ordered Sodium Chloride 0.9% [Saline Flush] Med 06/28/20 07:38 Active 10 ml FLUSH ONETIME PRN Medication Orders Sodium Chloride (Sodium Chloride 0.9% 10 Ml Syringe) 10 ml FLUSH ONETIME PRN PRN Reason: Keep Vein Open Stop: 06/28/20 23:00 Last Admin: 06/28/20 09:32 Dose: 10 ml Documented by: ABHI Labs: Laboratory Tests 06/28/20 06/28/20 06/28/20 Range/Units 06:36 06:36 06:36 WBC 9.4 (4.0-10.2) K/uL RBC 4.80 (3.77-5.09) M/uL Hgb 14.0 (11.7-15.5) g/dL Hct 42.8 (34.0-46.0) % MCV 89.2 (84.0-98.0) fL MCH 29.2 (28.2-33.3) pg MCHC 32.7 (31.7-36.0) g/dL RDW 15.7 H (11.2-14.1) % Plt Count 138 L (150-350) K/uL Neut % (Auto) 41.2 L (45.0-80.0) % Lymph % (Auto) 44.9 (10.0-50.0) % [place] % (Auto) 10.4 (2.0-14.0) % Eos % (Auto) 3.3 (0.0-5.0) % Baso % (Auto) 0.2 (0.0-2.0) % Neut # (Auto) 3.89 (1.40-7.00) K/uL Lymph # (Auto) 4.24 H (0.50-3.50) K/uL [place] # (Auto) 0.98 (0.00-1.00) K/uL Eos # (Auto) 0.31 (0.00-0.50) K/uL Baso # (Auto) 0.02 (0.00-0.20) K/uL PT (9.5-12.0) SEC INR D-Dimer, Quantitative 2100 H (0-400) ng/mL Sodium 138 (136-145) mmol/L Potassium 3.9 (3.5-5.1) mmol/L Chloride 105 (98-107) mmol/L Carbon Dioxide 24.2 (21.0-32.0) mmol/L BUN 9 (7-18) mg/dL Creatinine 0.82 (0.51-1.17) mg/dL Est Cr Clr Drug Dosing 99.33 mL/min Estimated GFR (MDRD) > 60 mL/min Glucose 106 H (70-99) mg/dL Calcium 8.5 (8.5-10.1) mg/dL Magnesium 1.9 (1.8-2.4) mg/dL Total Bilirubin 0.5 (0.2-1.0) mg/dL AST 43 H (15-37) U/L ALT 72 (12-78) U/L Alkaline Phosphatase 113 (46-116) IU/L Troponin I 0.000 (0.000-0.056) ng/mL Total Protein 7.0 (6.4-8.2) g/dL Albumin 3.1 L (3.4-5.0) g/dL Specimen Type Urine Color Urine Appearance Urine pH (5.0-9.0) Ur Specific [place] (1.005-1.030) Urine Protein (NEGATIVE) mg/dL Urine Glucose (UA) (NEGATIVE) mg/dL Urine Ketones (NEGATIVE) mg/dL Urine Occult Blood (NEGATIVE) Urine Nitrite (NEGATIVE) Urine Bilirubin (NEGATIVE) Urine Urobilinogen (0.2-1.0) E.U./dL Ur Leukocyte Esterase (NEGATIVE) Urine RBC /HPF Urine WBC /HPF Ur Epithelial Cells /LPF Urine Bacteria (NONE TO FEW) /HPF Monoscreen (NEGATIVE) 06/28/20 06/28/20 06/28/20 Range/Units 06:36 06:36 09:37 WBC (4.0-10.2) K/uL RBC (3.77-5.09) M/uL Hgb (11.7-15.5) g/dL Hct (34.0-46.0) % MCV (84.0-98.0) fL MCH (28.2-33.3) pg MCHC (31.7-36.0) g/dL RDW (11.2-14.1) % Plt Count (150-350) K/uL Neut % (Auto) (45.0-80.0) % Lymph % (Auto) (10.0-50.0) % [place] % (Auto) (2.0-14.0) % Eos % (Auto) (0.0-5.0) % Baso % (Auto) (0.0-2.0) % Neut # (Auto) (1.40-7.00) K/uL Lymph # (Auto) (0.50-3.50) K/uL [place] # (Auto) (0.00-1.00) K/uL Eos # (Auto) (0.00-0.50) K/uL Baso # (Auto) (0.00-0.20) K/uL PT 9.9 (9.5-12.0) SEC INR 1.0 D-Dimer, Quantitative (0-400) ng/mL Sodium (136-145) mmol/L Potassium (3.5-5.1) mmol/L Chloride (98-107) mmol/L Carbon Dioxide (21.0-32.0) mmol/L BUN (7-18) mg/dL Creatinine (0.51-1.17) mg/dL Est Cr Clr Drug Dosing mL/min Estimated GFR (MDRD) mL/min Glucose (70-99) mg/dL Calcium (8.5-10.1) mg/dL Magnesium (1.8-2.4) mg/dL Total Bilirubin (0.2-1.0) mg/dL AST (15-37) U/L ALT (12-78) U/L Alkaline Phosphatase (46-116) IU/L Troponin I (0.000-0.056) ng/mL Total Protein (6.4-8.2) g/dL Albumin (3.4-5.0) g/dL Specimen Type Urinvoid Urine Color Yellow Urine Appearance Clear Urine pH 6.5 (5.0-9.0) Ur Specific [place] 1.010 (1.005-1.030) Urine Protein Negative (NEGATIVE) mg/dL Urine Glucose (UA) Negative (NEGATIVE) mg/dL Urine Ketones Negative (NEGATIVE) mg/dL Urine Occult Blood Negative (NEGATIVE) Urine Nitrite Negative (NEGATIVE) Urine Bilirubin Negative (NEGATIVE) Urine Urobilinogen 0.2 (0.2-1.0) E.U./dL Ur Leukocyte Esterase Negative (NEGATIVE) Urine RBC 0-5 /HPF Urine WBC 5-10 H /HPF Ur Epithelial Cells Moderate H /LPF Urine Bacteria Few (NONE TO FEW) /HPF Monoscreen Negative (NEGATIVE) Meds: Medications Generic Name Dose Route Start Last Admin Trade Name Freq PRN Reason Stop Dose Admin Sodium Chloride 10 ml 06/28/20 07:38 06/28/20 09:32 Sodium Chloride 0.9% 10 Ml Syringe FLUSH 06/28/20 23:00 10 ml ONETIME PRN Administration Keep Vein Open Discontinued Medications Generic Name Dose Route Start Last Admin Trade Name Freq PRN Reason Stop Dose Admin Apixaban 10 mg 06/28/20 08:43 06/28/20 09:30 Apixaban 5 Mg Tab PO 06/28/20 08:44 10 mg ONETIME ONE Administration Iopamidol 100 ml 06/28/20 13:00 Iopamidol 755 Mg/Ml 100 Ml Bottle IVPUSH 06/28/20 13:01 ONETIME ONE Iopamidol Confirm 06/28/20 07:41 06/28/20 09:24 Iopamidol 755 Mg/Ml 100 Ml Bottle Administered 06/28/20 07:42 100 ml Dose Administration 100 ml .ROUTE .STK-MED ONE Ketorolac Tromethamine 30 mg 06/28/20 08:54 06/28/20 09:30 Ketorolac 30 Mg/Ml Sdv IVPUSH 06/28/20 08:55 30 mg ONETIME ONE Administration Tramadol HCl 50 mg 06/28/20 09:29 06/28/20 09:42 Tramadol 50 Mg Tab PO 06/28/20 09:30 50 mg ONETIME ONE Administration - Re-Assessments/Exams Free Text/Narrative Re-Assessment/Exam: 06/28/20 11:17 CBC/Chem/Mag/UA/DDimer/troponin requested. Unremarkable labs except for elevated DDimer. CTA chest ordered. + for bilateral lower lung PEs, no evidence right heart strain. Also noted to have incidental splenomegaly and probable splenic infarct. [place] added to labs and was negative. Suspect PEs related to recent Covid infection. Patient received initial dose of Eliquis in addition to Toradol and Tramadol to assist with chest discomfort complaint. Orders for bilateral LE Dopplar study to rule out DVT placed. Patient did not wish to stay several hours in ER waiting for study to be performed but willing to return later today for that study. PE diagnosis reviewed with patient, in addition to need for anticoagulation and close follow up with PCP. Vital signs stable. T achycardia improved after arrival but noted to return again after patient told about PE, suspect it is likely more related to anxiety than the PE diagnosis. Acute inpatient stay not indicated at this time. No contraindications identified for anticoagulation. Will continue patient on Eliquis and recommend follow up at clinic on Sunday. No strenuous lifting or activity at work/home for now. To return to ER if she has any problems/worsening symptoms. Patient agreeable with current plan. 06/28/20 11:25 smoking cessation encouraged during planning. Departure - Departure Time of Disposition: 09:56 Disposition: Home, Self-Care 01 Condition: Good Clinical Impression: Bilateral pulmonary embolism - Discharge Information *PRESCRIPTION DRUG MONITORING PROGRAM REVIEWED*: Not Applicable *COPY OF PRESCRIPTION DRUG MONITORING REPORT IN PATIENT ERIBERTO: Not Applicable Prescriptions: Apixaban [Eliquis] 5 mg PO BID #74 tablet traMADol [Ultram] 50 mg PO Q6H PRN #20 tab PRN Reason: Pain Instructions: Pulmonary Embolism Referrals: PCP,Unknown [Primary Care Provider] - Forms: ED Department Discharge, ED Return to Work/School Form Additional Instructions: Start taking your Eliquis. If your pharmacy has any issues filling it, have them determine what similar medications your insurance will cover and then call us for medication change as needed. Make an appointment to get rechecked by your regular clinic this Sunday. You will need to be on the blood thinners for at least three months and will need to continue following up with your primary provider during that time. Come to the ER if you have sudden worsening symptoms such as increasing shortness of breath. Avoid strenuous activity and heavy lifting this week. Further restrictions as needed when you are rechecked by the clinic this Sunday. Yes it is best to stop smoking. Smoking is a risk factor for PEs. Recommend following anti-inflammatory diet/lower carb diet. Target 100-120 grams of total carb intake daily. Call us if you have questions. Sepsis Event Note (ED) - Evaluation Sepsis Screening Result: No Definite Risk - Focused Exam Vital Signs: Vital Signs Temp Pulse Resp BP Pulse Ox 06/28/20 09:50 96 28 H 121/85 99 06/28/20 09:35 99 28 H 124/85 99 06/28/20 09:20 106 H 23 H 133/90 99 06/28/20 09:05 99 22 H 122/90 99 06/28/20 08:50 99 25 H 137/81 99 06/28/20 08:35 99 20 138/97 H 99 06/28/20 08:20 98 20 130/89 100 06/28/20 08:05 95 24 H 131/91 H 100 06/28/20 07:50 97 23 H 138/88 100 06/28/20 07:45 108 H 133/95 H 99 06/28/20 07:20 108 H 21 H 126/86 100 06/28/20 07:17 106 H 18 130/83 100 06/28/20 06:31 107 H 25 H 132/78 99 06/28/20 06:15 36.2 C 108 H 18 119/75 100 - My Orders Last 24 Hours: My Active Orders 06/28/20 06:29 EKG Documentation Completion [RC] STAT 06/28/20 06:30 EKG Documentation Completion [RC] ASDIRECTED 06/28/20 07:24 PE Chest [Ang Chest] [CT] Stat 06/28/20 07:38 Sodium Chloride 0.9% [Saline Flush] 10 ml FLUSH ONETIME PRN 06/28/20 09:29 Venous Doppler Lwr Ext Bi [US] Stat - Assessment/Plan Last 24 Hours: My Active Orders 06/28/20 06:29 EKG Documentation Completion [RC] STAT 06/28/20 06:30 EKG Documentation Completion [RC] ASDIRECTED 06/28/20 07:24 PE Chest [Ang Chest] [CT] Stat 06/28/20 07:38 Sodium Chloride 0.9% [Saline Flush] 10 ml FLUSH ONETIME PRN 06/28/20 09:29 Venous Doppler Lwr Ext Bi [US] Stat
[2020-06-28 10:11] VITALS: BP 121/85; PULSE 96
[2020-06-28] MEDS ORDERED: Iopamidol 755 Mg/ML 100 ML Bottle IVPUSH ONE (13:00)
== END 2020-06-28 10:24 | disposition home or self-care (01) ==
LOC: LL.ED 06:14
DX: I26.99 Other pulmonary embolism without acute cor pulmonale (principal); E66.9 Obesity, unspecified; I10 Essential (primary) hypertension; Z88.5 Allergy status to narcotic agent; Z79.01 Long term (current) use of anticoagulants; Z68.30 Body mass index [BMI] 30.0-30.9, adult; Z72.0 Tobacco use; Z68.33 Body mass index [BMI] 33.0-33.9, adult
CPT/HCPCS: 36415; 71275; 80053; 81001; 83735; 84484; 85025; 85379; 85610; 86308; 93005; 93970; 96374; 99284; 99285-25; A9270-GY; J1885; Q9967

== ENCOUNTER 2021-02-08 23:53 | Emergency (ER) | payer MEDICAID ==
[2021-02-09] MEDS ORDERED: GI Cocktail Oral Solution 30 ML PO ONE (00:07)
[2021-02-09 00:08] VITALS: BP 136/90; PULSE 106
--- NOTE | 2021-02-09 00:09 | PCM.EKG ---
#1 Interpretation EKG Date: 02/09/21 Time: 23:57 Rhythm: NSR Rate (Beats/Min): 92 [place]: Normal P-Wave: Present QRS: Normal ST-T: Normal QT: Normal Comparison: No Change
[2021-02-09 00:26] LABS: ANION GAP 15.7 meq/L (7-15); CHLORIDE,CL 103 mmol/L (98-107); SODIUM,NA 142 mmol/L (136-145)
--- NOTE | 2021-02-09 00:31 | EDM.PDOC ---
ED HPI GENERAL MEDICAL PROBLEM - General Chief Complaint: Chest Pain Stated Complaint: chest pain, left arm pain Time Seen by Provider: 02/08/21 23:55 Source of Information: Reports: Patient History Limitations: Reports: No Limitations - History of Present Illness INITIAL COMMENTS - FREE TEXT/NARRATIVE: Patient comes emergency department today from home with complaints of chest pain. This patient who does have a history of Tachycardia pulmonary embolism for which she just about a month ago stopped her anticoagulant which was a PE from [employer]. Anxiety depression migraines chest pain we did have a normal angiogram in 2018 has had waxing and waning intermittent chest pain throughout the day since about 10:00 this morning. She also has some pressure in her left arm. Not any shortness of breath diaphoresis nausea or vomiting. No weakness dizziness lightheadedness. This is different pain than when she had her pulmonary embolism from work [employer]. She has not had any syncope or palpitations. No abdominal pain nausea or vomiting. No hematuria dysuria urinary frequency. No black tarry stools. The long recent stents of travel or pain or swelling to her lower extremities. She is here today just making sure that she is not having a heart attack as she had a elevated troponin in the past. left chest/left arm Pain Score (Numeric/FACES): 5 - Related Data Allergies Allergy/AdvReac Type Severity Reaction Status Date / Time venlafaxine [From Effexor] Allergy Itching Verified 02/09/21 00:08 Home Meds: Home Meds PARoxetine HCl [Paxil] 20 mg PO DAILY 02/09/21 [History] Past Medical History HEENT History: Reports: Impaired Vision Other HEENT History: Wears glasses or soft contacts Cardiovascular History: Reports: Arrhythmia, High Cholesterol, Hypertension, Other (See Below) Other Cardiovascular History: PVCs by Holter monitor. History of sinus arrhythmia, borderline tachycardia with questionable atrial tachycardia versus sinus tachycardia on 02/03/15 based on review of emergency room records. Intermittent hypertension not currently being treated. Dyslipidemia. Respiratory History: Reports: PE Gastrointestinal History: Reports: None Genitourinary History: Reports: None [employer] DES[employer] History: Reports: , Spontaneous Other [employer] DES[employer]ER History: Normal LMP on 10/13/18. Last delivery on 08/27/18 at about 37 weeks gestation by induction secondary to preeclampsia. hemorrhage in 2013 as below. 1999 Note history of first trimester SABs 4 with last SAB requiring D&C in May 2016. Otherwise full term normal spontaneous vaginal deliveries without complications. Musculoskeletal History: Reports: None Neurological History: Reports: Headaches, Chronic, Migraines, Seizure, Vertigo, Other (See Below) Other Neuro History: History of mixed Migraine-tension headaches since 2012 with previous negative workup as below. 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 Chronic intermittent vertigo since October 2014. 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 Immunologic History: Reports: None Oncologic (Cancer) History: Reports: None Dermatologic History: Reports: None - Infectious Disease History Infectious Disease History: Reports: Chicken Pox, Novel Coronavirus - Past Surgical History Head Surgeries/Procedures: Reports: None HEENT Surgical History: Reports: None Cardiovascular Surgical History: Reports: None Respiratory Surgical History: Reports: None GI Surgical History: Reports: Appendectomy, Other (See Below) Other GI Surgeries/Procedures: Open appendectomy at age 8 Female Surgical History: Reports: D&C, Dilitation & Evacuation, Hysterectomy, Other (See Below) Other Female Surgeries/Procedures: Laparoscopic Bilateral salpingoectomy on 10/17/17. D&C on 06/09/16 secondary to SAB as above. Endocrine Surgical History: Reports: None Neurological Surgical History: Reports: None Musculoskeletal Surgical History: Reports: None Oncologic Surgical History: Reports: None Dermatological Surgical History: Reports: None - Past Imaging History Past Imaging History: Reports: Angiography (Negative heart catheterization on 01/07/18.), Cardiac Echo (Normal echocardiogram on 01/06/18 with ejection fraction of 65%.), CAT Scan (CT scan of the head in about 2012.), EEG (Sleep deprived EEG in about 2012.), Holter Monitor (02/16/15), MRI (MRI of the brain on 10/08/17 and 01/20/15.), Ultrasound (Multiple OB ultrasounds, including last OB ultrasound with concomitant umbilical artery Doppler evaluation on 04/25/18. Right breast ultrasound on 01/04/17.), Venous Doppler (Venous Doppler study of the right leg on 10/01/17.), Other (See Below) Social & Family History - Family History HEENT: Reports: None Cardiac: Reports: Aneurysm, CAD, High Cholesterol, Hypertension, HI, Stent, Other (See Below) Other Cardiac Family History: Father with history of HI in his early 20s with no procedures required. Maternal grandmother with HI in her late her 30s with PTCA/stents required. Father with cerebral aneurysms as below. Parents with hypertension and hyperlipidemia. Respiratory: Reports: None GI: Reports: Hepatitis, Other (See Below) Other GI Family History: Father with unknown type of hepatitis. : Reports: None OBGYN: Reports: None Musculoskeletal: Reports: Arthritis, Osteoarthritis, Other (See Below) Other Musculoskeletal Family History: Father and brother with Raynaurd's syndrome. Neurological: Reports: Alzheimers Disease, Cerebral Aneurysms, CVA, Dementia, Other (See Below) Other Neurological Family History: Maternal grandmother with dementia. Paternal grandfather with hemorrhagic CVA in his 40s secondary to cerebral aneurysm. Psychiatric: Reports: Anxiety, Depression, Other (See Below) Other Psychiatric Family History: Anxiety depression disorder in parents, sister, and brother. Endocrine/Metabolic: Reports: Diabetes, type II, IDDM, Other (See Below) Other Endocrine/Metabolic Family History: Paternal grandfather and father with IDDM. Hematologic: Reports: None Immunologic: Reports: None Dermatologic: Reports: None Oncologic: Reports: Prostate, Uterine, Other (See Below) Other Oncologic Family History: Father with prostate cancer. Maternal grandmoth er and paternal aunt both with uterine cancer in their 40s. 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 ED EXAM, GENERAL - Physical Exam Exam: See Below Exam Limited By: No Limitations General Appearance: Alert, WD/WN, No Apparent Distress, Obese Eye Exam: Bilateral Eye: EOMI, PERRL Ears: Normal External Exam Nose: Normal Inspection, Normal Mucosa Throat/Mouth: Normal Inspection Head: Atraumatic, Normocephalic Neck: Normal Inspection, Supple, Non-Tender Respiratory/Chest: No Respiratory Distress, Lungs Clear, No Accessory Muscle Use, Chest Non-Tender Cardiovascular: Normal Peripheral Pulses, Regular Rate, Rhythm GI/Abdominal: Normal Bowel Sounds, Soft, Non-Tender (Female) Exam: Deferred Rectal (Female) Exam: Deferred Back Exam: Normal Inspection, Decreased Range of Motion Extremities: Normal Inspection, Normal Range of Motion, Non-Tender, No Pedal Edema, Normal Capillary Refill Neurological: Alert, Oriented, Normal Cognition, No Motor/Sensory Deficits Psychiatric: Normal Affect, Normal Mood Skin Exam: Warm, Dry, Intact, Normal Color Lymphatic: No Adenopathy Course - Vital Signs Last Recorded V/S: Last Vital Signs Temp 97.2 F 02/08/21 23:55 Pulse 106 H 02/08/21 23:55 Resp 18 02/08/21 23:55 BP 136/90 02/08/21 23:55 Pulse Ox 100 02/08/21 23:55 - Orders/Labs/Meds Labs: Laboratory Tests 02/08/21 02/08/21 02/09/21 Range/Units 00:06 00:06 00:06 WBC 11.1 H (4.0-10.2) K/uL RBC 4.78 (3.77-5.09) M/uL Hgb 15.1 (11.7-15.5) g/dL Hct 44.6 (34.0-46.0) % MCV 93.3 D (84.0-98.0) fL MCH 31.6 (28.2-33.3) pg MCHC 33.9 (31.7-36.0) g/dL RDW 13.3 (11.2-14.1) % Plt Count 173 (150-350) K/uL Neut % (Auto) 55.0 (45.0-80.0) % Lymph % (Auto) 33.4 (10.0-50.0) % [place] % (Auto) 6.2 (2.0-14.0) % Eos % (Auto) 5.0 (0.0-5.0) % Baso % (Auto) 0.4 (0.0-2.0) % Neut # (Auto) 6.10 (1.40-7.00) K/uL Lymph # (Auto) 3.71 H (0.50-3.50) K/uL [place] # (Auto) 0.69 (0.00-1.00) K/uL Eos # (Auto) 0.56 H (0.00-0.50) K/uL Baso # (Auto) 0.04 (0.00-0.20) K/uL D-Dimer, Quantitative 295 (0-400) ng/mL Sodium 142 (136-145) mmol/L Potassium 3.3 L (3.5-5.1) mmol/L Chloride 103 (98-107) mmol/L Carbon Dioxide 26.6 (21.0-32.0) mmol/L Anion Gap 15.7 H (7-15) meq/L BUN 13 (7-18) mg/dL Creatinine 0.95 (0.51-1.17) mg/dL Est Cr Clr Drug Dosing TNP Estimated GFR (MDRD) > 60 mL/min Glucose 136 H (70-99) mg/dL Calcium 8.9 (8.5-10.1) mg/dL Total Bilirubin 0.5 (0.2-1.0) mg/dL AST 21 (15-37) U/L ALT 56 (12-78) U/L Alkaline Phosphatase 83 (46-116) IU/L Troponin I High Sens 7 (<=51) ng/L Total Protein 7.2 (6.4-8.2) g/dL Albumin 3.6 (3.4-5.0) g/dL Meds: Medications Discontinued Medications Generic Name Dose Route Start Last Admin Trade Name Freq PRN Reason Stop Dose Admin Al Hydroxide/Mg Hydroxide 30 ml 02/09/21 00:07 02/09/21 00:20 Gi Cocktail Oral Solution 30 Ml PO 02/09/21 00:08 30 ml ONETIME ONE Administration - Radiology Interpretation Free Text/Narrative:: Chest x-ray per radiology shows lungs are clear. There is no pleural effusion or pneumothorax identified. Cardiomediastinal silhouette pulmonary vascular and trachea are within normal limits. - Re-Assessments/Exams Free Text/Narrative Re-Assessment/Exam: 02/09/21 00:30 EKG was completed without any signs of acute ischemia. GI cocktail was given. With almost complete resolution of her symptoms. I did review her and [facility] and she had a negative angiogram in 2018. She also has a history of esophagitis diagnosed this year from a upper GI. Labs drawn. Patient's laboratory evaluation is rather unremarkable other than a mildly low potassium. Her D-dimer is normal. Her troponin is normal as well. Unsure of what her cause is although it does not appear emergent at this time. She is comfortable with this plan and her questions answered. Departure - Departure Time of Disposition: 00:50 Disposition: Home, Self-Care 01 Clinical Impression: Non-cardiac chest pain Instructions: Nonspecific Chest Pain, Adult, [id number] Referrals: Cat Valdivia PA-C [Primary Care Provider] - Forms: ED Department Discharge Additional Instructions: Tylenol and or ibuprofen as needed for pain. Continue with the chiropractor. Return to the ED if new or worsening symptoms. Follow up with PCP in a week if continued symptoms. Sepsis Event Note (ED) - Evaluation Sepsis Screening Result: No Definite Risk
== END 2021-02-09 00:55 | disposition home or self-care (01) ==
LOC: LL.ED 23:53
DX: R07.89 Other chest pain (principal); E78.00 Pure hypercholesterolemia, unspecified; I10 Essential (primary) hypertension; E66.9 Obesity, unspecified; Z68.30 Body mass index [BMI] 30.0-30.9, adult; Z88.8 Allergy status to other drugs, medicaments and biological substances; Z72.0 Tobacco use
CPT/HCPCS: 36415; 71046; 80053; 84484; 85025; 85379; 93005; 99284; 99285; A9270

== ENCOUNTER 2021-11-19 05:57 | Emergency (ER) | payer MEDICAID ==
[2021-11-19 06:53] LABS: CHLORIDE,CL 103 mmol/L (98-107); SODIUM,NA 140 mmol/L (136-145)
[2021-11-19 06:54] LABS: ANION GAP 16.4 meq/L (7-15)
[2021-11-19 06:55] LABS: ESTIMATED GFR 100 mL/min (>=60)
[2021-11-19] MEDS ORDERED: Iopamidol 755 Mg/ML 100 ML Bottle IVPUSH ONE ×2 (07:12→07:35)
[2021-11-19 07:14] LABS: CORONAVIRUS COVID-19 NAA NEGATIVE (NEGATIVE); RESPIRATORY SYNCYTIAL VIR NAA NEGATIVE (NEGATIVE)
[2021-11-19 07:21] LABS: BARBITURATE SCREEN,URINE NEGATIVE (NEGATIVE); BENZODIAZEPINES SCREEN,URINE NEGATIVE (NEGATIVE); EDDP,URINE SCREEN NEGATIVE (NEGATIVE); TCA SCREEN,URINE NEGATIVE (NEGATIVE); THC SCREEN,URINE 50 NG/ML NEGATIVE (NEGATIVE)
[2021-11-19 07:23] LABS: BUPRENORPHINE SCREEN,URINE NEGATIVE (NEGATIVE)
[2021-11-19 12:22] VITALS: BP 117/78; PULSE 84
== END 2021-11-19 09:07 ==
LOC: LL.ED 05:57
DX: R29.810 Facial weakness (principal); R47.01 Aphasia; E78.00 Pure hypercholesterolemia, unspecified; I10 Essential (primary) hypertension; E66.9 Obesity, unspecified; Z88.8 Allergy status to other drugs, medicaments and biological substances; Z20.822 Contact with and (suspected) exposure to COVID-19; Z68.39 Body mass index [BMI] 39.0-39.9, adult
CPT/HCPCS: 0241U; 36415; 70450; 70496; 71275; 80053; 80305; 81001; 82550; 83615; 83735; 84484; 85025; 85379; 86140; 93005; 99285; Q9967; 93010

== ENCOUNTER → 2021-12-01 | Emergency (ER) | payer MEDICAID ==
[2021-12-21 10:02] LABS: ANION GAP 10.7 meq/L (7-15); CHLORIDE,CL 107 mmol/L (98-107); ESTIMATED GFR 112 mL/min (>=60); SODIUM,NA 141 mmol/L (136-145)
== END ==
LOC: LL.ED 10:30
DX: Z03.89 Encounter for observation for other suspected diseases and conditions ruled out (principal)
CPT/HCPCS: 36415; 70450; 80053; 85025; 85379; 99284

== ENCOUNTER 2022-08-21 11:23 | Emergency (ER) | payer SELFPAY ==
[2022-08-21 11:48] VITALS: BP 143/95; PULSE 73
[2022-08-21] MEDS: Ketorolac 30 MG/ML SDV IM ONE (12:06)
[2022-08-21] MEDS: Prochlorperazine 10 MG/2 ML SDV IM ONE (12:09)
[2022-08-21] MEDS: diphenhydrAMINE 50 MG/ML SDV IM ONE (12:11)
== END 2022-08-21 12:50 | disposition home or self-care (01) ==
LOC: LL.ED 11:23
DX: G43.909 Migraine, unspecified, not intractable, without status migrainosus (principal); E78.00 Pure hypercholesterolemia, unspecified; I10 Essential (primary) hypertension; F17.210 Nicotine dependence, cigarettes, uncomplicated; E66.9 Obesity, unspecified; Z86.16 Personal history of COVID-19; Z79.899 Other long term (current) drug therapy; Z79.82 Long term (current) use of aspirin; Z88.8 Allergy status to other drugs, medicaments and biological substances
CPT/HCPCS: 96372; 99283-25; J0780; J1200; J1885

== ENCOUNTER 2022-09-22 07:59 | Emergency (ER) | payer SELFPAY ==
[2022-09-22] MEDS ORDERED: Sodium Chloride 0.9% 10 ML Syringe FLUSH PRN (08:01)
[2022-09-22 08:22] LABS: BASOPHILS ABSOLUTE AUTO 0.04 K/uL (0.00-0.20); BASOPHILS PERCENT AUTO 0.3 % (0.0-2.0); EOSINOPHILS ABSOLUTE AUTO 0.58 K/uL (0.00-0.50); HEMATOCRIT 48.2 % (34.0-46.0); HEMOGLOBIN 16.1 g/dL (11.7-15.5); LYMPHOCYTES ABSOLUTE AUTO 3.53 K/uL (0.50-3.50); LYMPHOCYTES PERCENT AUTO 30.2 % (10.0-50.0); MEAN CORPUSCULAR HEMOGLOBIN 31.1 pg (28.2-33.3); MEAN CORPUSCULAR HGB CONC 33.4 g/dL (31.7-36.0); MEAN CORPUSCULAR VOLUME 93.2 fL (84.0-98.0); MONOCYTES ABSOLUTE AUTO 0.71 K/uL (0.00-1.00); MONOCYTES PERCENT AUTO 6.1 % (2.0-14.0); NEUTROPHILS ABSOLUTE AUTO 6.84 K/uL (1.40-7.00); NEUTROPHILS PERCENT AUTO 58.4 % (45.0-80.0); PLATELET COUNT,PLT 208 K/uL (150-350); RED BLOOD CELL COUNT 5.17 M/uL (3.77-5.09); RED CELL DISTRIBUTION WIDTH 14.3 % (11.2-14.1); WHITE BLOOD CELL COUNT,WBC 11.7 K/uL (4.0-10.2)
[2022-09-22 08:47] LABS: ALBUMIN 3.6 g/dL (3.4-5.0); ANION GAP 8.7 meq/L (7-15); BILIRUBIN TOTAL 0.4 mg/dL (0.2-1.0); CARBON DIOXIDE,CO2 26.3 mmol/L (21.0-32.0); CREATININE 0.89 mg/dL (0.51-1.17); EST CRCL DRUG DOSING (CG) 89.06 mL/min; PROTEIN TOTAL,TP 7.2 g/dL (6.4-8.2)
[2022-09-22] MEDS: Iopamidol 755 Mg/ML 100 ML Bottle IVPUSH STA (08:52)
[2022-09-22 10:05] VITALS: BP 137/95; PULSE 102
== END 2022-09-22 09:58 ==
LOC: LL.ED 07:59
DX: R20.0 Anesthesia of skin (principal); E78.00 Pure hypercholesterolemia, unspecified; I10 Essential (primary) hypertension; E66.9 Obesity, unspecified; Z68.41 Body mass index [BMI] 40.0-44.9, adult; Z88.8 Allergy status to other drugs, medicaments and biological substances; Z86.16 Personal history of COVID-19; Z79.899 Other long term (current) drug therapy
CPT/HCPCS: 36415; 70450; 70496; 70498; 80053; 82947; 85025; 93005; 93010; 99284; 99285; Q9967

== ENCOUNTER 2022-11-08 21:01 | Emergency (ER) | payer SELFPAY ==
[2022-11-08] MEDS ORDERED: Meclizine 25 MG Tab PO ONE (21:26)
[2022-11-08 21:34] LABS: BASOPHILS ABSOLUTE AUTO 0.05 K/uL (0.00-0.20); BASOPHILS PERCENT AUTO 0.4 % (0.0-2.0); EOSINOPHILS ABSOLUTE AUTO 0.51 K/uL (0.00-0.50); EOSINOPHILS PERCENT AUTO 3.9 % (0.0-5.0); HEMATOCRIT 43.6 % (34.0-46.0); HEMOGLOBIN 14.8 g/dL (11.7-15.5); LYMPHOCYTES ABSOLUTE AUTO 4.13 K/uL (0.50-3.50); LYMPHOCYTES PERCENT AUTO 31.8 % (10.0-50.0); MEAN CORPUSCULAR HEMOGLOBIN 31.4 pg (28.2-33.3); MEAN CORPUSCULAR HGB CONC 33.9 g/dL (31.7-36.0); MEAN CORPUSCULAR VOLUME 92.4 fL (84.0-98.0); MONOCYTES ABSOLUTE AUTO 0.63 K/uL (0.00-1.00); MONOCYTES PERCENT AUTO 4.8 % (2.0-14.0); NEUTROPHILS ABSOLUTE AUTO 7.68 K/uL (1.40-7.00); NEUTROPHILS PERCENT AUTO 59.1 % (45.0-80.0); PLATELET COUNT,PLT 181 K/uL (150-350); RED BLOOD CELL COUNT 4.72 M/uL (3.77-5.09); RED CELL DISTRIBUTION WIDTH 13.8 % (11.2-14.1)
[2022-11-08 21:57] LABS: ALANINE AMINOTRANSFERASE,ALT 49 U/L (12-78); ALBUMIN 3.6 g/dL (3.4-5.0); ALKALINE PHOSPHATASE 84 IU/L (46-116); ANION GAP 11.7 meq/L (7-15); ASPARTATE AMNIOTRANSFERASE,AST 22 U/L (15-37); BILIRUBIN TOTAL 0.3 mg/dL (0.2-1.0); BLOOD UREA NITROGEN,BUN 14 mg/dL (7-18); CALCIUM 8.8 mg/dL (8.5-10.1); CARBON DIOXIDE,CO2 24.3 mmol/L (21.0-32.0); CHLORIDE,CL 104 mmol/L (98-107); CREATININE 0.87 mg/dL (0.51-1.17); ESTIMATED GFR 91 mL/min (>=60); GLUCOSE RANDOM 174 mg/dL (70-99); MAGNESIUM 1.9 mg/dL (1.8-2.4); POTASSIUM,K 3.5 mmol/L (3.5-5.1); SODIUM,NA 140 mmol/L (136-145)
[2022-11-08] MEDS ORDERED: LORazepam 0.5 MG Tab PO ONE (22:06)
[2022-11-08 22:23] VITALS: BP 136/97; PULSE 94
== END 2022-11-08 22:35 | disposition home or self-care (01) ==
LOC: LL.ED 21:01
DX: R42 Dizziness and giddiness (principal); F41.9 Anxiety disorder, unspecified; I10 Essential (primary) hypertension; E66.9 Obesity, unspecified; F17.210 Nicotine dependence, cigarettes, uncomplicated; Z88.8 Allergy status to other drugs, medicaments and biological substances; Z79.82 Long term (current) use of aspirin; Z86.711 Personal history of pulmonary embolism
CPT/HCPCS: 36415; 70450; 80053; 83735; 85025; 93005; 99284; A9270-GY

== ENCOUNTER 2022-12-24 23:03 | Emergency (ER) | payer SELFPAY ==
[2022-12-24 23:06] VITALS: PULSE 102
[2022-12-24] MEDS: Ketorolac 30 MG/ML SDV IVPUSH ONE (23:36)
[2022-12-24] MEDS: Ondansetron 4 MG/2 ML SDV IVPUSH ONE (23:36)
[2022-12-24] MEDS: diphenhydrAMINE 50 MG/ML SDV IVPUSH ONE (23:36)
[2022-12-24] MEDS: Sodium Chloride 0.9% 1,000 ML IV SCH (23:36)
[2022-12-24] MEDS: Sodium Chloride 0.9% 10 ML Syringe FLUSH PRN (23:37)
[2022-12-24 23:43] LABS: BASOPHILS ABSOLUTE AUTO 0.08 K/uL (0.00-0.20); BASOPHILS PERCENT AUTO 0.5 % (0.0-2.0); EOSINOPHILS ABSOLUTE AUTO 0.65 K/uL (0.00-0.50); HEMATOCRIT 44.2 % (34.0-46.0); HEMOGLOBIN 14.6 g/dL (11.7-15.5); LYMPHOCYTES ABSOLUTE AUTO 5.32 K/uL (0.50-3.50); LYMPHOCYTES PERCENT AUTO 32.6 % (10.0-50.0); MEAN CORPUSCULAR HEMOGLOBIN 31.1 pg (28.2-33.3); MEAN CORPUSCULAR VOLUME 94.2 fL (84.0-98.0); MONOCYTES ABSOLUTE AUTO 1.05 K/uL (0.00-1.00); MONOCYTES PERCENT AUTO 6.4 % (2.0-14.0); NEUTROPHILS ABSOLUTE AUTO 9.22 K/uL (1.40-7.00); NEUTROPHILS PERCENT AUTO 56.5 % (45.0-80.0); PLATELET COUNT,PLT 213 K/uL (150-350); RED BLOOD CELL COUNT 4.69 M/uL (3.77-5.09); RED CELL DISTRIBUTION WIDTH 13.8 % (11.2-14.1); WHITE BLOOD CELL COUNT,WBC 16.3 K/uL (4.0-10.2)
[2022-12-24 23:49] VITALS: BP 127/90
[2022-12-25 00:04] LABS: ALANINE AMINOTRANSFERASE,ALT 31 U/L (12-78); ALBUMIN 3.7 g/dL (3.4-5.0); ALKALINE PHOSPHATASE 99 IU/L (46-116); ANION GAP 10.6 meq/L (7-15); ASPARTATE AMNIOTRANSFERASE,AST 11 U/L (15-37); BILIRUBIN TOTAL 0.3 mg/dL (0.2-1.0); BLOOD UREA NITROGEN,BUN 17 mg/dL (7-18); CALCIUM 9.2 mg/dL (8.5-10.1); CARBON DIOXIDE,CO2 24.4 mmol/L (21.0-32.0); CHLORIDE,CL 105 mmol/L (98-107); CREATININE 0.98 mg/dL (0.51-1.17); GLUCOSE RANDOM 113 mg/dL (70-99); POTASSIUM,K 3.6 mmol/L (3.5-5.1); PROTEIN TOTAL,TP 7.2 g/dL (6.4-8.2); SODIUM,NA 140 mmol/L (136-145)
[2022-12-25 00:06] LABS: ESTIMATED GFR 79 mL/min (>=60)
[2022-12-25] MEDS: Acetaminophen 325 MG Tab PO ONE (01:09)
== END 2022-12-25 01:00 | disposition home or self-care (01) ==
LOC: LL.ED 23:03
DX: G43.909 Migraine, unspecified, not intractable, without status migrainosus (principal); I10 Essential (primary) hypertension; E78.00 Pure hypercholesterolemia, unspecified; E66.9 Obesity, unspecified; Z79.82 Long term (current) use of aspirin; Z79.899 Other long term (current) drug therapy; Z86.16 Personal history of COVID-19; Z88.8 Allergy status to other drugs, medicaments and biological substances; Z90.49 Acquired absence of other specified parts of digestive tract; Z90.710 Acquired absence of both cervix and uterus
CPT/HCPCS: 36415; 80053; 83735; 85025; 96374; 96375; 99283; 99283-25; J1200; J1885; J2405; J3490; J7030

== ENCOUNTER 2023-02-16 20:56 | Emergency (ER) | payer SELFPAY ==
[2023-02-16] MEDS ORDERED: LORazepam 0.5 MG Tab PO ONE (21:09)
[2023-02-16 21:47] LABS: BASOPHILS ABSOLUTE AUTO 0.05 K/uL (0.00-0.20); BASOPHILS PERCENT AUTO 0.4 % (0.0-2.0); EOSINOPHILS ABSOLUTE AUTO 0.38 K/uL (0.00-0.50); EOSINOPHILS PERCENT AUTO 2.8 % (0.0-5.0); HEMATOCRIT 44.7 % (34.0-46.0); HEMOGLOBIN 14.9 g/dL (11.7-15.5); LYMPHOCYTES ABSOLUTE AUTO 3.11 K/uL (0.50-3.50); LYMPHOCYTES PERCENT AUTO 23.3 % (10.0-50.0); MEAN CORPUSCULAR HEMOGLOBIN 30.9 pg (28.2-33.3); MEAN CORPUSCULAR HGB CONC 33.3 g/dL (31.7-36.0); MEAN CORPUSCULAR VOLUME 92.7 fL (84.0-98.0); MONOCYTES ABSOLUTE AUTO 0.69 K/uL (0.00-1.00); MONOCYTES PERCENT AUTO 5.2 % (2.0-14.0); NEUTROPHILS ABSOLUTE AUTO 9.12 K/uL (1.40-7.00); NEUTROPHILS PERCENT AUTO 68.3 % (45.0-80.0); PLATELET COUNT,PLT 203 K/uL (150-350); RED BLOOD CELL COUNT 4.82 M/uL (3.77-5.09); RED CELL DISTRIBUTION WIDTH 13.9 % (11.2-14.1); WHITE BLOOD CELL COUNT,WBC 13.4 K/uL (4.0-10.2)
[2023-02-16 22:00] LABS: ALANINE AMINOTRANSFERASE,ALT 33 U/L (12-78); ALBUMIN 3.7 g/dL (3.4-5.0); ALKALINE PHOSPHATASE 101 IU/L (46-116); ANION GAP 11.4 meq/L (7-15); ASPARTATE AMNIOTRANSFERASE,AST 16 U/L (15-37); BILIRUBIN TOTAL 0.4 mg/dL (0.2-1.0); BLOOD UREA NITROGEN,BUN 15 mg/dL (7-18); CALCIUM 9.1 mg/dL (8.5-10.1); CARBON DIOXIDE,CO2 26.6 mmol/L (21.0-32.0); CHLORIDE,CL 102 mmol/L (98-107); CREATININE 0.99 mg/dL (0.51-1.17); GLUCOSE RANDOM 139 mg/dL (70-99); POTASSIUM,K 3.8 mmol/L (3.5-5.1); PROTEIN TOTAL,TP 7.2 g/dL (6.4-8.2); SODIUM,NA 140 mmol/L (136-145)
[2023-02-16 22:08] LABS: ESTIMATED GFR 78 mL/min (>=60)
[2023-02-16 22:09] LABS: CORONAVIRUS COVID-19 NAA NEGATIVE (NEGATIVE); INFLUENZA A NAA NEGATIVE (NEGATIVE); INFLUENZA B NAA NEGATIVE (NEGATIVE); RESPIRATORY SYNCYTIAL VIR NAA NEGATIVE (NEGATIVE)
[2023-02-16 22:13] LABS: APPEARANCE,URINE CLEAR; BILIRUBIN,URINE NEGATIVE (NEGATIVE); COLOR,URINE YELLOW; GLUCOSE,URINE NEGATIVE (NEGATIVE); KETONES,URINE NEGATIVE (NEGATIVE); LEUKOCYTE ESTERASE,URINE NEGATIVE (NEGATIVE); NITRITE,URINE NEGATIVE (NEGATIVE); OCCULT BLOOD,URINE NEGATIVE (NEGATIVE); PROTEIN,URINE NEGATIVE (NEGATIVE); UROBILINOGEN,URINE 0.2 E.U./dL (0.2-1.0)
[2023-02-16 22:26] VITALS: BP 123/85; PULSE 86
== END 2023-02-16 22:33 | disposition home or self-care (01) ==
LOC: LL.ED 20:56
DX: R20.0 Anesthesia of skin (principal); F41.9 Anxiety disorder, unspecified; I10 Essential (primary) hypertension; E78.00 Pure hypercholesterolemia, unspecified; Z86.16 Personal history of COVID-19; Z20.822 Contact with and (suspected) exposure to COVID-19; Z79.82 Long term (current) use of aspirin; Z90.49 Acquired absence of other specified parts of digestive tract; Z90.710 Acquired absence of both cervix and uterus; Z88.8 Allergy status to other drugs, medicaments and biological substances; Z88.2 Allergy status to sulfonamides; Z79.899 Other long term (current) drug therapy; Z86.73 Personal history of transient ischemic attack (TIA), and cerebral infarction without residual deficits
CPT/HCPCS: 0241U; 36415; 80053; 81003; 83735; 85025; 99284; A9270-GY

== ENCOUNTER 2023-03-26 16:59 | Emergency (ER) | payer SELFPAY ==
[2023-03-26 17:13] VITALS: BP 120/88
[2023-03-26 17:29] LABS: BASOPHILS ABSOLUTE AUTO 0.04 K/uL (0.00-0.20); BASOPHILS PERCENT AUTO 0.3 % (0.0-2.0); EOSINOPHILS ABSOLUTE AUTO 0.57 K/uL (0.00-0.50); HEMOGLOBIN 15.2 g/dL (11.7-15.5); LYMPHOCYTES PERCENT AUTO 30.5 % (10.0-50.0); MEAN CORPUSCULAR HEMOGLOBIN 31.3 pg (28.2-33.3); MEAN CORPUSCULAR HGB CONC 33.8 g/dL (31.7-36.0); MEAN CORPUSCULAR VOLUME 92.6 fL (84.0-98.0); MONOCYTES ABSOLUTE AUTO 0.82 K/uL (0.00-1.00); MONOCYTES PERCENT AUTO 5.7 % (2.0-14.0); NEUTROPHILS ABSOLUTE AUTO 8.58 K/uL (1.40-7.00); NEUTROPHILS PERCENT AUTO 59.5 % (45.0-80.0); PLATELET COUNT,PLT 227 K/uL (150-350); RED BLOOD CELL COUNT 4.86 M/uL (3.77-5.09); RED CELL DISTRIBUTION WIDTH 14.3 % (11.2-14.1); WHITE BLOOD CELL COUNT,WBC 14.4 K/uL (4.0-10.2)
[2023-03-26 17:37] VITALS: PULSE 84
[2023-03-26 17:47] LABS: ALANINE AMINOTRANSFERASE,ALT 27 U/L (12-78); ALBUMIN 3.8 g/dL (3.4-5.0); ALKALINE PHOSPHATASE 89 IU/L (46-116); ANION GAP 11.3 meq/L (7-15); ASPARTATE AMNIOTRANSFERASE,AST 16 U/L (15-37); BILIRUBIN TOTAL 0.4 mg/dL (0.2-1.0); BLOOD UREA NITROGEN,BUN 10 mg/dL (7-18); CALCIUM 9.2 mg/dL (8.5-10.1); CARBON DIOXIDE,CO2 26.7 mmol/L (21.0-32.0); CHLORIDE,CL 104 mmol/L (98-107); CREATININE 0.94 mg/dL (0.51-1.17); GLUCOSE RANDOM 125 mg/dL (70-99); MAGNESIUM 1.9 mg/dL (1.8-2.4); POTASSIUM,K 3.8 mmol/L (3.5-5.1); PROTEIN TOTAL,TP 7.5 g/dL (6.4-8.2); SODIUM,NA 142 mmol/L (136-145)
[2023-03-26 17:57] LABS: ESTIMATED GFR 83 mL/min (>=60)
== END 2023-03-26 18:20 | disposition home or self-care (01) ==
LOC: LL.ED 16:59
DX: M79.662 Pain in left lower leg (principal); I10 Essential (primary) hypertension; E78.00 Pure hypercholesterolemia, unspecified; F17.210 Nicotine dependence, cigarettes, uncomplicated; Z86.16 Personal history of COVID-19; Z88.2 Allergy status to sulfonamides; Z88.8 Allergy status to other drugs, medicaments and biological substances; Z79.82 Long term (current) use of aspirin; Z79.899 Other long term (current) drug therapy
CPT/HCPCS: 36415; 80053; 83735; 85025; 85379; 99283; 99284

== ENCOUNTER 2023-04-14 06:19 | Emergency (ER) | payer SELFPAY ==
[2023-04-14 06:22] VITALS: BP 133/94; PULSE 74
== END 2023-04-14 06:30 | disposition left against medical advice (07) ==
LOC: LL.ED 06:19
DX: Z53.21 Procedure and treatment not carried out due to patient leaving prior to being seen by health care provider (principal)

== ENCOUNTER 2023-07-09 16:39 | Emergency (ER) | payer MEDICAID, OTHER ==
[2023-07-09] MEDS: Take Home: Cyclobenzaprine 10 MG Tab, 4 Tab Pack PO ONE (17:43)
[2023-07-09 20:12] VITALS: BP 135/91; PULSE 84
== END 2023-07-09 18:00 | disposition home or self-care (01) ==
LOC: LL.ED 16:39
DX: M54.50 Low back pain, unspecified (principal); I10 Essential (primary) hypertension; E78.00 Pure hypercholesterolemia, unspecified; E66.9 Obesity, unspecified; Z86.16 Personal history of COVID-19; Z79.899 Other long term (current) drug therapy; Z79.82 Long term (current) use of aspirin; Z88.8 Allergy status to other drugs, medicaments and biological substances
CPT/HCPCS: 99283; A9270-GY

== ENCOUNTER 2023-08-08 20:01 | Emergency (ER) | payer MEDICAID, OTHER ==
[2023-08-08 20:32] LABS: BASOPHILS ABSOLUTE AUTO 0.04 K/uL (0.00-0.20); BASOPHILS PERCENT AUTO 0.2 % (0.0-2.0); EOSINOPHILS ABSOLUTE AUTO 0.32 K/uL (0.00-0.50); EOSINOPHILS PERCENT AUTO 1.9 % (0.0-5.0); HEMATOCRIT 43.3 % (34.0-46.0); HEMOGLOBIN 14.3 g/dL (11.7-15.5); LYMPHOCYTES ABSOLUTE AUTO 3.67 K/uL (0.50-3.50); LYMPHOCYTES PERCENT AUTO 22.2 % (10.0-50.0); MEAN CORPUSCULAR HEMOGLOBIN 31.2 pg (28.2-33.3); MEAN CORPUSCULAR VOLUME 94.5 fL (84.0-98.0); MONOCYTES ABSOLUTE AUTO 0.84 K/uL (0.00-1.00); MONOCYTES PERCENT AUTO 5.1 % (2.0-14.0); NEUTROPHILS ABSOLUTE AUTO 11.67 K/uL (1.40-7.00); NEUTROPHILS PERCENT AUTO 70.6 % (45.0-80.0); PLATELET COUNT,PLT 198 K/uL (150-350); RED BLOOD CELL COUNT 4.58 M/uL (3.77-5.09); WHITE BLOOD CELL COUNT,WBC 16.5 K/uL (4.0-10.2)
[2023-08-08 20:43] LABS: CALCIUM IONIZED,POC 1.05 mmol/L (1.12-1.32)
[2023-08-08 20:44] LABS: POTASSIUM,POC 4.3 mmol/L (3.5-4.5)
[2023-08-08 20:49] LABS: ALANINE AMINOTRANSFERASE,ALT 39 U/L (12-78); ALBUMIN 3.6 g/dL (3.4-5.0); ALKALINE PHOSPHATASE 80 IU/L (46-116); ANION GAP 8.3 meq/L (7-15); ASPARTATE AMNIOTRANSFERASE,AST 17 U/L (15-37); BILIRUBIN TOTAL 0.7 mg/dL (0.2-1.0); BLOOD UREA NITROGEN,BUN 9 mg/dL (7-18); CALCIUM 8.9 mg/dL (8.5-10.1); CARBON DIOXIDE,CO2 26.7 mmol/L (21.0-32.0); CHLORIDE,CL 103 mmol/L (98-107); CREATININE 0.85 mg/dL (0.51-1.17); GLUCOSE RANDOM 88 mg/dL (70-99); MAGNESIUM 1.8 mg/dL (1.8-2.4); POTASSIUM,K 4.1 mmol/L (3.5-5.1); SODIUM,NA 138 mmol/L (136-145)
[2023-08-08 20:52] LABS: ESTIMATED GFR 94 mL/min (>=60)
[2023-08-08] MEDS: Sodium Chloride 0.9% 10 ML Syringe FLUSH PRN (20:56)
[2023-08-08] MEDS: Ondansetron 4 MG/2 ML SDV IVPUSH ONE (20:56)
[2023-08-08 21:03] LABS: INR 1.4 (0.9-1.1); PROTHROMBIN TIME 14.2 SEC (9.0-11.1)
[2023-08-08] MEDS: Ketorolac 15 MG/ML SDV IVPUSH ONE (21:50)
[2023-08-08] MEDS: diphenhydrAMINE 50 MG/ML SDV IVPUSH ONE (22:04)
[2023-08-08 23:05] VITALS: BP 149/95; PULSE 49
== END 2023-08-08 23:26 | disposition home or self-care (01) ==
LOC: LL.ED 20:01
DX: G43.909 Migraine, unspecified, not intractable, without status migrainosus (principal); R00.1 Bradycardia, unspecified; I10 Essential (primary) hypertension; E78.00 Pure hypercholesterolemia, unspecified; E66.9 Obesity, unspecified; Z87.891 Personal history of nicotine dependence; Z79.899 Other long term (current) drug therapy; Z79.82 Long term (current) use of aspirin; Z88.8 Allergy status to other drugs, medicaments and biological substances; Z68.41 Body mass index [BMI] 40.0-44.9, adult
CPT/HCPCS: 36415; 70450; 71045; 80053; 80143; 82947; 83735; 84484; 85025; 85610; 93005; 96374; 96375; 99284; J1885; J2405; 93010; J3490

== ENCOUNTER 2023-12-24 18:53 | Emergency (ER) | payer MEDICAID, OTHER ==
[2023-12-24 19:07] VITALS: BP 125/87; PULSE 84
== END 2023-12-24 19:15 | disposition home or self-care (01) ==
LOC: LL.ED 18:53
DX: F41.9 Anxiety disorder, unspecified (principal); I10 Essential (primary) hypertension; E78.00 Pure hypercholesterolemia, unspecified; E66.9 Obesity, unspecified; Z90.49 Acquired absence of other specified parts of digestive tract; Z90.710 Acquired absence of both cervix and uterus; Z79.899 Other long term (current) drug therapy; Z79.82 Long term (current) use of aspirin; Z88.8 Allergy status to other drugs, medicaments and biological substances
CPT/HCPCS: 99283; 99284

== ENCOUNTER 2024-09-25 07:49 | Emergency (ER) | payer MEDICAID ==
[2024-09-25 08:36] LABS: APPEARANCE,URINE CLEAR; GLUCOSE,URINE NEGATIVE (NEGATIVE); OCCULT BLOOD,URINE NEGATIVE (NEGATIVE)
[2024-09-25] MEDS: Ketorolac 30 MG/ML SDV IM ONE (08:39)
[2024-09-25 08:44] LABS: SQUAMOUS EPITHELIAL CELLS,UR MANY /HPF (NOT SEEN)
[2024-09-25 10:45] VITALS: BP 138/78; PULSE 88
== END 2024-09-25 09:20 | disposition home or self-care (01) ==
LOC: LL.ED 07:49
DX: S29.012A Strain of muscle and tendon of back wall of thorax, initial encounter (principal); I25.10 Atherosclerotic heart disease of native coronary artery without angina pectoris; E78.00 Pure hypercholesterolemia, unspecified; I10 Essential (primary) hypertension; Z86.73 Personal history of transient ischemic attack (TIA), and cerebral infarction without residual deficits; Z90.710 Acquired absence of both cervix and uterus; Z79.899 Other long term (current) drug therapy; Z79.82 Long term (current) use of aspirin; Z88.8 Allergy status to other drugs, medicaments and biological substances; X58.XXXA Exposure to other specified factors, initial encounter
CPT/HCPCS: 81001; 96372; 99283; J1885

== ENCOUNTER 2024-11-27 15:55 | Emergency (ER) | payer MEDICAID ==
[2024-11-27 16:03] VITALS: BP 135/95; PULSE 79
[2024-11-27 16:17] LABS: BASOPHILS ABSOLUTE AUTO 0.07 K/uL (0.00-0.20); BASOPHILS PERCENT AUTO 0.5 % (0.0-2.0); EOSINOPHILS ABSOLUTE AUTO 0.53 K/uL (0.00-0.50); EOSINOPHILS PERCENT AUTO 3.9 % (0.0-5.0); IMMATURE GRAN ABSOLUTE AUTO 0.02 10^3/uL (0.00-0.04); IMMATURE GRAN PERCENT AUTO 0.1 % (0.0-0.4); LYMPHOCYTES ABSOLUTE AUTO 3.97 K/uL (0.50-3.50); LYMPHOCYTES PERCENT AUTO 29.1 % (10.0-50.0); MONOCYTES ABSOLUTE AUTO 0.70 K/uL (0.00-1.00); MONOCYTES PERCENT AUTO 5.1 % (2.0-14.0); NEUTROPHILS ABSOLUTE AUTO 8.34 K/uL (1.40-7.00); NEUTROPHILS PERCENT AUTO 61.3 % (45.0-80.0); PLATELET COUNT,PLT 199 K/uL (150-350); RED BLOOD CELL COUNT 4.85 M/uL (3.77-5.09); RED CELL DISTRIBUTION WIDTH 13.3 % (11.2-14.1); WHITE BLOOD CELL COUNT,WBC 13.6 K/uL (4.0-10.2)
[2024-11-27 16:38] LABS: ALANINE AMINOTRANSFERASE,ALT 43 U/L (12-78); ASPARTATE AMNIOTRANSFERASE,AST 19 U/L (15-37); BILIRUBIN TOTAL 0.5 mg/dL (0.2-1.0); BLOOD UREA NITROGEN,BUN 16 mg/dL (7-18); CARBON DIOXIDE,CO2 28.9 mmol/L (21.0-32.0); CHLORIDE,CL 104 mmol/L (98-107); CREATININE 0.93 mg/dL (0.51-1.17); ESTIMATED GFR 83 mL/min (>=60); GLUCOSE RANDOM 93 mg/dL (70-99); POTASSIUM,K 3.8 mmol/L (3.5-5.1); PROTEIN TOTAL,TP 7.4 g/dL (6.4-8.2); SODIUM,NA 142 mmol/L (136-145)
[2024-11-27 16:44] LABS: INR 0.9 (0.9-1.1); PTT,PARTIAL THROMBOPLSTIN TIME 26.3 SEC (23.8-34.4)
== END 2024-11-27 16:55 | disposition home or self-care (01) ==
LOC: LL.ED 15:55
DX: R51.9 Headache, unspecified (principal); R42 Dizziness and giddiness; R53.83 Other fatigue; I10 Essential (primary) hypertension; E78.00 Pure hypercholesterolemia, unspecified; E66.9 Obesity, unspecified; Z90.49 Acquired absence of other specified parts of digestive tract; Z90.710 Acquired absence of both cervix and uterus; Z88.8 Allergy status to other drugs, medicaments and biological substances; Z79.82 Long term (current) use of aspirin; Z79.899 Other long term (current) drug therapy
CPT/HCPCS: 36415; 70450; 80053; 83735; 85025; 85610; 85730; 99283; 99284